=== PATIENT | female | born 1965 | race Caucasian/White ===

== ENCOUNTER 2016-12-07 21:56 | Emergency (ER) | payer SELFPAY ==
[2016-12-07 22:53] LABS: ABSOLUTE BASOPHILS # (AUTO) 0.1 10^3/uL (0.0-0.2); ABSOLUTE EOSINOPHILS # (AUTO) 0.4 10^3/uL (0.0-0.6); ABSOLUTE LYMPHOCYTES (AUTO) 5.5 10^3/uL (0.5-4.7); ABSOLUTE MONOCYTES (AUTO) 0.8 10^3/uL (0.1-1.4); ABSOLUTE NEUT (AUTO) 6.8 10^3/uL (1.7-8.2); BASOPHILS % (AUTO) 0.7 % (0-2); EOSINOPHILS % (AUTO) 2.7 % (0-6); HEMATOCRIT 44.9 % (36.0-47.0); HEMOGLOBIN 15.4 g/dL (12.0-15.5); HGB HCT DIFFERENCE 1.3; LYMPHOCYTES % (AUTO) 40.7 % (13-45); MEAN CORPUSCULAR HEMOGLOBIN 30.3 pg (27.0-33.4); MEAN CORPUSCULAR HGB CONC 34.2 g/dL (32.0-36.0); MEAN CORPUSCULAR VOLUME 89 fl (80-97); MONOCYTES % (AUTO) 6.1 % (3-13); RED BLOOD COUNT 5.06 10^6/uL (3.72-5.28); RED CELL DISTRIBUTION WIDTH 13.2 % (11.5-14.0); SEGMENTED NEUTROPHILS % (AUTO) 49.8 % (42-78); WHITE BLOOD COUNT 13.6 10^3/uL (4.0-10.5)
[2016-12-07 23:03] LABS: APPEARANCE,URINE SLIGHTLY-CLOUDY; BILIRUBIN,URINE NEGATIVE (NEGATIVE); GLUCOSE, URINE NEGATIVE (NEGATIVE); KETONES,URINE NEGATIVE (NEGATIVE); LEUKOCYTE ESTERASE,URINE NEGATIVE (NEGATIVE); NITRITE,URINE NEGATIVE (NEGATIVE); PROTEIN,URINE NEGATIVE (NEGATIVE); URINE SPECIFIC GRAVITY 1.025; UROBILINOGEN,URINE NEGATIVE mg/dL (<2.0)
[2016-12-07 23:04] LABS: ALANINE AMINOTRANSFERASE 48 U/L (9-52); ALBUMIN 4.9 g/dL (3.5-5.0); ALKALINE PHOSPHATASE 65 U/L (38-126); ANION GAP 13 (5-19); ASPARTATE AMINO TRANSFERASE 27 U/L (14-36); BILIRUBIN,DIRECT 0.3 mg/dL (0.0-0.4); BILIRUBIN,TOTAL 0.3 mg/dL (0.2-1.3); BLOOD UREA NITROGEN 18 mg/dL (7-20); CALCIUM 10.1 mg/dL (8.4-10.2); CARBON DIOXIDE 27 mmol/L (22-30); CHLORIDE 104 mmol/L (98-107); CREATININE RESULT 0.74 mg/dL (0.52-1.25); GLUCOSE 88 mg/dL (75-110); LIPASE 53.4 U/L (23-300); POTASSIUM 4.1 mmol/L (3.6-5.0); SODIUM 143.8 mmol/L (137-145); TOTAL PROTEIN 7.9 g/dL (6.3-8.2)
--- NOTE | 2016-12-08 02:17 | ER Document Report ---
ED General - General Chief Complaint: Abdominal Pain Stated Complaint: RIGHT RIB PAIN Time Seen by Provider: 12/08/16 02:08 Mode of Arrival: Ambulatory Information source: Patient TRAVEL OUTSIDE OF THE U.[place]. IN LAST 30 DAYS: No - HPI Notes: Patient is a 51-year-old white female presents to the emergency department with report of 1 month history of progressive pain through the right side of the abdomen worse to the right upper quadrant and although she also describes some pain to the right lateral lower chest wall along the rib cage as well as to the right lower quadrant region. Patient reports when the pain hits her she feels sweaty and somewhat nauseated, but she denies any specific postprandial component. patient denies any fever chills, no cough congestion. Patient has a history of previous right rib fractures and last had a CTA of the chest August 2015 which was otherwise negative. History of abdominal ultrasound 2013 which showed fatty liver. Patient does report a recent 20 pound weight gain. - Related Data Allergies/Adverse Reactions: meloxicam [Meloxicam] Allergy (Verified 12/07/16 22:27) Penicillins Allergy (Verified 12/07/16 22:27) tetracycline [Tetracycline] Allergy (Verified 12/07/16 22:27) Past Medical History - General Information source: Patient - Social History Smoking Status: Never Smoker Frequency of alcohol use: None Drug Abuse: None Lives with: Family Family History: Reviewed & Not Pertinent, CAD - mother Patient has suicidal ideation: No Patient has homicidal ideation: No - Past Medical History Cardiac Medical History: Reports: Hx Hypercholesterolemia, Hx Hypertension - borderline Denies: Hx Heart Attack Pulmonary Medical History: Reports: Hx Bronchitis Denies: Hx Asthma, Hx COPD, Hx Pneumonia Neurological Medical History: Denies: Hx Seizures Renal/ Medical History: Reports: Hx Ovarian Cysts - FIBROIDS, Hx Renal Insufficiency. Denies: Hx Peritoneal Dialysis GI Medical History: Reports: Hx Diverticulitis, Hx Gastroesophageal Reflux Disease Musculoskeltal Medical History: Reports Hx Arthritis Psychiatric Medical History: Reports: Hx Anxiety, Hx Bipolar Disorder, Hx Depression, Hx Post Traumatic Stress Disorder Past Surgical History: Reports: Hx Tubal Ligation. Denies: Hx Hysterectomy - Immunizations Hx Diphtheria, Pertussis, Tetanus Vaccination: Yes - 2012 Review of Systems - Review of Systems Notes: REVIEW OF SYSTEMS: CONSTITUTIONAL : Denies fever, chills, or sweats. Denies recent illness. EENT: Denies eye, ear, throat, or mouth pain or symptoms. Denies nasal or sinus congestion or discharge. Denies throat, tongue, or mouth swelling or difficulty swallowing. CARDIOVASCULAR: Denies chest pain. Denies palpitations or racing or irregular heart beat. Denies ankle edema. RESPIRATORY: Denies cough, cold, or chest congestion. Denies shortness of breath, difficulty breathing, or wheezing. GASTROINTESTINAL: Denies distention. Denies vomiting, or diarrhea. Denies blood in vomitus, stools, or per rectum. Denies black, tarry stools. Denies constipation. GENITOURINARY: Denies difficulty urinating, painful urination, burning, frequency, blood in urine, or discharge. FEMALE GENITOURINARY: Denies vaginal bleeding, heavy or abnormal periods, irregular periods. Denies vaginal discharge or odor. MUSCULOSKELETAL: Denies neck pain or stiffness. Denies joint pain or swelling. SKIN: Denies rash, lesions or sores. HEMATOLOGIC : Denies easy bruising or bleeding. LYMPHATIC: Denies swollen, enlarged glands. NEUROLOGICAL: Denies confusion or altered mental status. Denies passing out or loss of consciousness. Denies dizziness or lightheadedness. Denies headache. Denies weakness or paralysis or loss of use of either side. Denies problems with gait or speech. Denies sensory loss, numbness, or tingling. Denies seizures. PSYCHIATRIC: Denies anxiety or stress. Denies depression, suicidal ideation, or homicidal ideation. ALL OTHER SYSTEMS REVIEWED AND NEGATIVE. Dictation was performed using [employer] voice recognition software Physical Exam - Vital signs Vitals: Temp Pulse Resp BP Pulse Ox 98.4 F 78 20 151/94 H 97 12/07/16 22:27 12/07/16 22:27 12/07/16 22:27 12/07/16 22:27 12/07/16 22:27 - Notes Notes: PHYSICAL EXAMINATION: GENERAL: Well-appearing, well-nourished and in no acute distress. HEAD: Atraumatic, normocephalic. EYES: Pupils equal round and reactive to light, extraocular movements intact, conjunctiva are normal. ENT: Nares patent, oropharynx clear without exudates. Moist mucous membranes. NECK: Normal range of motion, supple without lymphadenopathy LUNGS: Breath sounds clear to auscultation bilaterally and equal. No wheezes rales or rhonchi. HEART: Regular rate and rhythm without murmurs ABDOMEN: Soft nondistended abdomen. No guarding, no rebound. No masses appreciated. patient is obese. There is a positive Duncan's but there is also pain to the right mid lower abdominal region. Patient also has pain to the right lateral floating anterior rib #10. No erythema or crepitance to the region. Female : deferred Musculoskeletal: Normal range of motion, no pitting or edema. No cyanosis. There is pain in the paraspinal region on the back extending around to the locations to the abdomen, raising question of herniated disc pathology given the patient's pain with possible radiculopathy. NEUROLOGICAL: Cranial nerves grossly intact. Normal speech, normal gait. Normal sensory, motor exams PSYCH: Normal mood, normal affect. SKIN: Warm, Dry, normal turgor, no rashes or lesions noted. Course - Re-evaluation Re-evalutation: 12/08/16 06:43 No evidence for pneumothorax or diverticulitis or hepatitis or pancreatitis or acute cholecystitis or aneurysm or appendicitis. Patient has a prior known history of diverticulosis. Patient does report history of herniated disks and does have a smoking history, raising question for radiculopathy accounting for the patient's pain. Patient may need follow-up MRI study. Ovarian dermoid cyst will be followed up outpatient by [employer] [employer]. - Vital Signs Vital signs: Temp Pulse Resp BP Pulse Ox 98.4 F 78 12 117/87 H 96 12/07/16 22:27 12/07/16 22:27 12/08/16 05:00 12/08/16 04:46 12/08/16 05:00 - Laboratory Result Diagrams: 12/07/16 22:40 12/07/16 22:40 Laboratory results interpreted by me: 12/07/16 22:40 WBC 13.6 H Absolute Lymphocytes 5.5 H Discharge - Discharge Clinical Impression: Dermoid cyst Abdominal pain Qualifiers: Abdominal location: right upper quadrant Qualified Code(s): R10.11 - Right upper quadrant pain Back pain Qualifiers: Back pain location: low back pain Chronicity: unspecified Back pain laterality : right Sciatica presence: without sciatica Qualified Code(s): M54.5 - Low back pain Condition: Stable Disposition: HOME, SELF-CARE Instructions: Abdominal Pain ([facility]), Low Back Pain ([facility]) Additional Instructions: If back pain continues, then you may need a MRI of the thoracic and lumbar spine. Follow-up with a bird cage assembler regarding the dermoid cyst on the right ovary. Prescriptions: Hydrocodone/Acetaminophen [[place] 5-325 mg Tablet] 1 tab PO Q4HP PRN #20 tablet PRN Reason: Cyclobenzaprine HCl [Flexeril 10 mg Tablet] 10 mg PO TIDP PRN #20 tablet PRN Reason: Forms: Return to Work
[2016-12-08] MEDS ORDERED: NORMAL SALINE 1000 ML 1,000 ML IV ONE (02:33)
--- NOTE | 2016-12-08 03:36 | RADIOLOGY REPORT (SQ) ---
EXAM DESCRIPTION: CT ABD/PELVIS WITH IV ONLY COMPLETED DATE/TIME: 12/08/2016 3:10 am REASON FOR STUDY: R abd pain COMPARISON: None. TECHNIQUE: CT scan of the abdomen and pelvis performed using helical scanning technique with dynamic intravenous contrast injection. No oral contrast. Images reviewed with lung, soft tissue, and bone windows. Reconstructed coronal and sagittal MPR images reviewed. Delayed images for evaluation of the urinary system also acquired. All images stored on PACS. All CT scanners at this facility use dose modulation, iterative reconstruction, and/or weight based d osing when appropriate to reduce radiation dose to as low as reasonably achievable (ALARA). [facility]: Dose Right [facility]: CareDose [facility]: Dose Right [facility]: Teradose 4D [facility]: Quant the News CONTRAST TYPE AND DOSE: 100mL Isovue 370- low osmolar. RENAL FUNCTION: Creatinine 0.7 RADIATION DOSE: 37.95mGy. LIMITATIONS: None. FINDINGS: LOWER CHEST: No significant findings. No nodules or infiltrates. Minimal hiatal hernia. LIVER: Normal size. No masses or dilated ducts. SPLEEN: Normal size. No focal lesions. PANCREAS: No masses. No significant calcifications. No adjacent inflammation or peripancreatic fluid collections. Pancreatic duct not dilated. GALLBLADDER: No identified stones by CT criteria. No inflammatory changes to suggest cholecystitis. ADRENAL GLANDS: No significant masses or asymmetry. RIGHT KIDNEY AND URETER: No solid masses. No significant calcifications. No hydronephrosis or hyd roureter. LEFT KIDNEY AND URETER: No solid masses. No significant calcifications. No hydronephrosis or hydr oureter. 1.2 cm exophytic likely benign cyst of the left kidney, inferior pole. AORTA AND VESSELS: No aneurysm. No dissection. Renal arteries, SMA, celiac without stenosis. RETROPERITONEUM: No retroperitoneal adenopathy, hemorrhage or masses. BOWEL AND PERITONEAL CAVITY: No masses or inflammatory changes. No free fluid or peritoneal masses. Small colonic diverticulosis. APPENDIX: Normal. PELVIS: No mass or free fluid. Normal bladder. Likely 2.1 right ovarian dermoid. ABDOMINAL WALL: No masses. No hernias. BONES: No significant or acute findings. Mild developmental L1 anterior vertebral wedging. Mild dis c desiccation at the thoracolumbar junction. OTHER: No other significant finding. IMPRESSION: No acute findings. 2.1 cm right ovarian dermoid. TECHNICAL DOCUMENTATION: JOB ID: [id number] Quality ID # [id number]: Final reports with documentation of one or more dose reduction techniques (e.g., Au tomated exposure control, adjustment of the mA and/or kV according to patient size, use of iterative reconstruction technique) 2010 [employer]- All Rights Reserved
[2016-12-08] MEDS ORDERED: HYDROCODONE/ACETAMINOPHEN 5-325 MG TABLET PO ONE (05:39)
[2016-12-08] MEDS ORDERED: CYCLOBENZAPRINE HCL 10 MG TABLET PO ONE (05:39)
[2016-12-08 05:54] VITALS: BP 117/87
== END 2016-12-08 07:12 | disposition home or self-care (01) ==
LOC: ER 21:56
DX: D27.0 Benign neoplasm of right ovary (principal); R10.11 Right upper quadrant pain; R10.31 Right lower quadrant pain; R07.89 Other chest pain; R61 Generalized hyperhidrosis; M54.5 Low back pain; R11.0 Nausea; Z87.81 Personal history of (healed) traumatic fracture; R63.5 Abnormal weight gain; Z68.38 Body mass index [BMI] 38.0-38.9, adult; Z88.8 Allergy status to other drugs, medicaments and biological substances; Z88.0 Allergy status to penicillin; Z88.1 Allergy status to other antibiotic agents; Z98.51 Tubal ligation status
CPT/HCPCS: 99284; 36415; 83690; 85025; 81025; 80053; 81001; 74177; J7030; 96360

== ENCOUNTER 2017-02-09 12:53 | Emergency (ER) | payer SELFPAY ==
[2017-02-09 13:13] VITALS: BP 159/91
--- NOTE | 2017-02-09 13:26 | ER Document Report ---
HPI - HPI Patient complains to provider of: Body aches and sore throat Onset: Other - 1 week Onset/Duration: Persistent Quality of pain: Achy Pain Level: 5 Context: 51-year-old female complaining of generalized body aches, sore throat, dental pain, anterior left base of the neck pain. She also states that her right eye was crusted shut this morning. No fever. No chest pain or shortness of breath. No nausea vomiting or diarrhea. No abdominal pain. No rash. Associated Symptoms: Other - See above Exacerbated by: Denies Relieved by: Denies Similar symptoms previously: No Recently seen / treated by doctor: No - ROS ROS below otherwise negative: Yes Systems Reviewed and Negative: Yes All other systems reviewed and negative - REPRODUCTIVE Reproductive: DENIES: : - DERM Skin Color: Normal Past Medical History - General Information source: Patient - Social History Smoking Status: Current Every Day Smoker Frequency of alcohol use: None Drug Abuse: None Lives with: Family Family History: Reviewed & Not Pertinent, CAD - mother Patient has suicidal ideation: No Patient has homicidal ideation: No - Past Medical History Cardiac Medical History: Reports: Hx Hypercholesterolemia, Hx Hypertension - borderline Pulmonary Medical History: Reports: Hx Bronchitis Renal/ Medical History: Reports: Hx Ovarian Cysts - FIBROIDS, Hx Renal Insufficiency. Denies: Hx Peritoneal Dialysis GI Medical History: Reports: Hx Diverticulitis, Hx Gastroesophageal Reflux Disease Musculoskeltal Medical History: Reports Hx Arthritis Psychiatric Medical History: Reports: Hx Anxiety, Hx Bipolar Disorder, Hx Depression, Hx Post Traumatic Stress Disorder Surgical Hx: Negative Past Surgical History: Reports: Hx Tubal Ligation - Immunizations Hx Diphtheria, Pertussis, Tetanus Vaccination: Yes - 2012 [facility] Provider Document - CONSTITUTIONAL Agree With Documented VS: Yes Exam Limitations: No Limitations General Appearance: No Apparent Distress - INFECTION CONTROL TRAVEL OUTSIDE OF THE [place] IN LAST 30 DAYS: No COUNTRY TRAVELED TO/FROM: [place] - HEENT HEENT: Normocephalic, PERRLA, Pharyngeal Erythema - Mild. negative: Conjuctival Injection, Tympanic Membrane Red Notes: Top right molar decay no abscess. Right preauricular lymph node. No conjunctival injection, no fluorescein uptake. - NECK Neck: Supple. negative: Lymphadenopathy-Left, Lymphadenopathy-Right Notes: Tender left scalene muscle base of the neck just above the clavicle, no adenopathy - RESPIRATORY Respiratory: Breath Sounds Normal, No Respiratory Distress O2 Sat by Pulse Oximetry: 97 - CARDIOVASCULAR Cardiovascular: Regular Rate, Regular Rhythm - GI/ABDOMEN Gastrointestinal: Abdomen Soft, Abdomen Non-Tender - BACK Back: Normal Inspection. negative: CVA Tenderness-Right, CVA Tenderness-Left - MUSCULOSKELETAL/EXTREMETIES Musculoskeletal/Extremeties: MAEW, FROM - NEURO Level of Consciousness: Awake, Alert, Appropriate - DERM Integumentary: Warm, Dry, No Rash Course - Vital Signs Vital signs: Temp Pulse Resp BP Pulse Ox 98.0 F 77 18 159/91 H 97 02/09/17 13:11 02/09/17 13:11 02/09/17 13:11 02/09/17 13:11 02/09/17 13:11 Discharge - Discharge Clinical Impression: right conjunctivitis, upper respiratroy infeciton, Lymphadenopathy, skalene muscle strain, Pain, dental Condition: Good Disposition: HOME, SELF-CARE Instructions: Conjunctivitis ([facility]), Upper Respiratory Illness ([facility]), Toothache ([facility]), Lymphadenopathy ([facility]), Muscle Strain ([facility]), Warm Packs ([facility]), Dentist Additional Instructions: See your doctor for follow-up see the dentist warm compress to muscle To the emergency room if worse Please complete the patient satisfaction survey if you get one, and return it.. If you do not receive a survey, then you can go to the [facility] website, [email or web address] and place your comments about your very good care. Thank you very much. It was a pleasure being your medical provider today. Prescriptions: Hydrocodone Bit/Acetaminophen [Hydrocodon-Acetaminophen 5-325] 1 each PO Q4HP PRN #15 tablet PRN Reason: Clindamycin HCl [Cleocin 150 mg Capsule] 300 mg PO TID #42 capsule Sulfacetamide Sodium [Bleph-10] 2 drop OU QID #5 ml Forms: Return to Work Referrals: ADALBERTO PATEL MD [Primary Care Provider] - Follow up as needed
== END 2017-02-09 14:16 | disposition home or self-care (01) ==
LOC: ER 12:53
DX: S16.1XXA Strain of muscle, fascia and tendon at neck level, initial encounter (principal); H10.9 Unspecified conjunctivitis; J06.9 Acute upper respiratory infection, unspecified; K08.89 Other specified disorders of teeth and supporting structures; R59.1 Generalized enlarged lymph nodes; R52 Pain, unspecified; J02.9 Acute pharyngitis, unspecified; M54.2 Cervicalgia; F17.200 Nicotine dependence, unspecified, uncomplicated; X58.XXXA Exposure to other specified factors, initial encounter
CPT/HCPCS: 99283

== ENCOUNTER 2017-08-23 13:17 | Emergency (ER) | payer SELFPAY ==
--- NOTE | 2017-08-23 14:33 | ER Document Report ---
HPI - HPI Patient complains to provider of: Dental pain Onset: This morning Onset/Duration: Gradual Quality of pain: Achy Pain Level: 4 Context: Patient complains of dental pain to right upper jaw. Patient states she noticed some swelling to her face today. Patient denies any fever. Associated Symptoms: Other - Dental pain. denies: Fever Exacerbated by: Denies Relieved by: Denies Similar symptoms previously: Yes Recently seen / treated by doctor: No - ROS ROS below otherwise negative: Yes Systems Reviewed and Negative: Yes All other systems reviewed and negative - CONSTITUTIONAL Constitutional: DENIES: Fever, Chills - EENT Notes: Dental pain - RESPIRATORY Respiratory: DENIES: Coughing - GASTROINTESTINAL Gastrointestinal: DENIES: Nausea, Patient vomiting - REPRODUCTIVE Reproductive: DENIES: : - DERM Skin Color: Normal Skin Problems: None Past Medical History - General Information source: Patient - Social History Smoking Status: Current Every Day Smoker Smoking Education Provided: Yes Frequency of alcohol use: Occasional Drug Abuse: None Occupation: call center Lives with: Family Family History: Reviewed & Not Pertinent, CAD - mother Patient has suicidal ideation: No Patient has homicidal ideation: No - Past Medical History Cardiac Medical History: Reports: Hx Hypercholesterolemia, Hx Hypertension - borderline Denies: Hx Heart Attack Pulmonary Medical History: Reports: Hx Bronchitis Denies: Hx Asthma, Hx COPD, Hx Pneumonia Neurological Medical History: Denies: Hx Seizures Renal/ Medical History: Reports: Hx Ovarian Cysts - FIBROIDS, Hx Renal Insufficiency. Denies: Hx Peritoneal Dialysis GI Medical History: Reports: Hx Diverticulitis, Hx Gastroesophageal Reflux Disease Musculoskeltal Medical History: Reports Hx Arthritis Psychiatric Medical History: Reports: Hx Anxiety, Hx Bipolar Disorder, Hx Depression, Hx Post Traumatic Stress Disorder Past Surgical History: Reports: Hx Tubal Ligation. Denies: Hx Hysterectomy - Immunizations Hx Diphtheria, Pertussis, Tetanus Vaccination: Yes - 2013 [employer] Provider Document - CONSTITUTIONAL Agree With Documented VS: Yes Exam Limitations: No Limitations General Appearance: WD/WN, No Apparent Distress - INFECTION CONTROL TRAVEL OUTSIDE OF THE [place] IN LAST 30 DAYS: No COUNTRY TRAVELED TO/FROM: [place] - HEENT HEENT: Atraumatic, Normocephalic. negative: Pharyngeal Exudate, Pharyngeal Tenderness, Pharyngeal Erythema, Tympanic Membrane Red, Tympanic Membrane Bulging Mouth Diagram: 1 - tenderness, dental decay - NECK Neck: Normal Inspection, Supple. negative: Lymphadenopathy-Left, Lymphadenopathy-Right - RESPIRATORY Respiratory: Breath Sounds Normal, No Respiratory Distress O2 Sat by Pulse Oximetry: 95 - CARDIOVASCULAR Cardiovascular: Regular Rate, Regular Rhythm, No Murmur - BACK Back: Normal Inspection - MUSCULOSKELETAL/EXTREMETIES Musculoskeletal/Extremeties: ZULEIKA RIOS - NEURO Level of Consciousness: Awake, Alert, Appropriate Motor/Sensory: No Motor Deficit - DERM Integumentary: Warm, Dry, No Rash Course - Re-evaluation Re-evalutation: 08/23/17 14:30 The patient has been informed that they may have pre-hypertension or hypertension based on a blood pressure reading in the emergency department. I recommend that patient call the primary care provider listed on their discharge instructions or a physician of their choice by this week to arrange follow-up for further evaluation of possible pre-hypertension or hypertension. Controlled substance database reviewed - Vital Signs Vital signs: Temp Pulse Resp BP Pulse Ox 98.6 F 78 16 147/91 H 95 08/23/17 13:28 08/23/17 13:28 08/23/17 13:28 08/23/17 13:28 08/23/17 13:28 Discharge - Discharge Clinical Impression: Pain due to dental caries, Elevated blood pressure reading Condition: Stable Disposition: HOME, SELF-CARE Instructions: Clindamycin ([facility]), Toothache ([facility]), Ultram ([facility]) Additional Instructions: Return immediately for any new or worsening symptoms Followup with your primary care provider, call tomorrow to make a followup appointment Follow-up with a dental care provider Prescriptions: Clindamycin HCl [Cleocin 300 mg Capsule] 300 mg PO TID #21 capsule Tramadol HCl [Ultram 50 mg Tablet] 50 mg PO ASDIR PRN #15 tablet PRN Reason: Forms: Elevated Blood Pressure, Smoking Cessation Education, Return to Work Referrals: ADALBERTO PATEL MD [ACTIVE STAFF] - Follow up as needed [facility] [Provider Group] - Follow up tomorrow
[2017-08-23 14:56] VITALS: BP 132/85
== END 2017-08-23 14:56 | disposition home or self-care (01) ==
LOC: ER 13:17
DX: K02.9 Dental caries, unspecified (principal); R03.0 Elevated blood-pressure reading, without diagnosis of hypertension; F17.200 Nicotine dependence, unspecified, uncomplicated; E78.00 Pure hypercholesterolemia, unspecified; Z98.51 Tubal ligation status
CPT/HCPCS: 99282

== ENCOUNTER 2017-09-27 16:49 | Emergency (ER) | payer BC ==
--- NOTE | 2017-09-27 17:38 | RADIOLOGY REPORT (SQ) ---
EXAM DESCRIPTION: CHEST PA/LAT COMPLETED DATE/TIME: 09/27/2017 5:27 pm REASON FOR STUDY: cp COMPARISON: 08/21/2015 EXAM PARAMETERS: NUMBER OF VIEWS: two views TECHNIQUE: Digital Frontal and Lateral radiographic views of the chest acquired. RADIATION DOSE: NA LIMITATIONS: none FINDINGS: LUNGS AND PLEURA: No opacities, masses or pneumothorax. No pleural effusion. MEDIASTINUM AND HILAR STRUCTURES: No masses or contour abnormalities. HEART AND VASCULAR STRUCTURES: Heart normal size. No evidence for failure. BONES: No acute findings. HARDWARE: None in the chest. OTHER: No other significant finding. IMPRESSION: NO SIGNIFICANT RADIOGRAPHIC FINDING IN THE CHEST. TECHNICAL DOCUMENTATION: JOB ID: [id number] [employer]- All Rights Reserved Reading location - IP/workstation name: [email or web address]
[2017-09-27] MEDS ORDERED: ONDANSETRON HCL INJ/PF 4 MG/2 ML SDV IV ONE (18:36)
--- NOTE | 2017-09-27 18:36 | ER Document Report ---
ED General - General Chief Complaint: Chest Pain > 30 Stated Complaint: CHEST PAIN Time Seen by Provider: 09/27/17 18:25 TRAVEL OUTSIDE OF THE [place] IN LAST 30 DAYS: No COUNTRY TRAVELED TO/FROM: [facility] Notes: Patient is a 52-year-old female with a history of hypercholesterolemia, CVA approximately 4 years ago, occasional falls and CVA who presents to the ED complaining of midsternal chest tightness, dizziness, headache, and nausea 3 days. + loose stool x3-4 days. Patient states that she does have shortness of breath when she ambulates. The chest pain does not radiate otherwise. Patient states that she is still eating and drinking without any difficulties. She is urinating normally for her and having normal bowel movements. Patient states that she did fall on an outstretched hand today and has a bruise to her anterior wrist. Patient denies any head injury or loss of consciousness. Patient does not take any p.o. medications daily. She denies any significant cardiac history. Denies any prolonged immobilization, hormone replacement, diabetes, previous DVT/PE, cancer, recent surgery/trauma, or IV drug use. Patient does admit to smoking. Denies any fever, neck pain, changes in vision/ speech/mentation/hearing, URI, sore throat, palpitations, syncope, cough, shortness of breath, wheeze, dyspnea, abdominal pain, vomiting, urinary retention, dysuria, hematuria, or rash. I have treated and performed a rapid initial assessment of this patient. A comprehensive ED assessment and evaluation of the patient, analysis of test results and completion of medical decision making process will be conducted by additional ED providers. PHYSICAL EXAMINATION: GENERAL: Well-appearing, well-nourished and in no acute distress. A&Ox4. Answers questions appropriately. LUNGS: Breath sounds clear to auscultation bilaterally and equal. No wheezes rales or rhonchi. HEART: Regular rate and rhythm without murmurs, rubs, gallops. ABDOMEN: Soft, bs present. Extremities: No cyanosis, clubbing, or edema b/l. NEUROLOGICAL: Normal speech, normal gait. PSYCH: Normal mood, normal affect. - Related Data Allergies/Adverse Reactions: meloxicam [Meloxicam] Allergy (Verified 09/27/17 16:52) Penicillins Allergy (Verified 09/27/17 16:52) tetracycline [Tetracycline] Allergy (Verified 09/27/17 16:52) Past Medical History - Social History Smoking Status: Current Every Day Smoker Chew tobacco use (# tins/day): No Frequency of alcohol use: None Drug Abuse: None Family History: Reviewed & Not Pertinent, CAD - mother Patient has suicidal ideation: No Patient has homicidal ideation: No - Past Medical History Cardiac Medical History: Reports: Hx Hypercholesterolemia, Hx Hypertension - borderline Denies: Hx Heart Attack Pulmonary Medical History: Reports: Hx Bronchitis Denies: Hx Asthma, Hx COPD, Hx Pneumonia Neurological Medical History: Denies: Hx Seizures Renal/ Medical History: Reports: Hx Ovarian Cysts - FIBROIDS, Hx Renal Insufficiency. Denies: Hx Peritoneal Dialysis GI Medical History: Reports: Hx Diverticulitis, Hx Gastroesophageal Reflux Disease Musculoskeltal Medical History: Reports Hx Arthritis Psychiatric Medical History: Reports: Hx Anxiety, Hx Bipolar Disorder, Hx Depression, Hx Post Traumatic Stress Disorder Past Surgical History: Reports: Hx Tubal Ligation. Denies: Hx Hysterectomy - Immunizations Hx Diphtheria, Pertussis, Tetanus Vaccination: Yes - 2012 Physical Exam - Vital signs Vitals: Temp Pulse Resp BP Pulse Ox 98.3 F 95 18 148/88 H 96 09/27/17 17:01 09/27/17 17:01 09/27/17 17:01 09/27/17 17:01 09/27/17 17:01 Course - Vital Signs Vital signs: Temp Pulse Resp BP Pulse Ox 98.3 F 95 18 148/88 H 96 09/27/17 17:01 09/27/17 17:01 09/27/17 17:01 09/27/17 17:01 09/27/17 17:01
--- NOTE | 2017-09-27 18:53 | EKG REPORT ---
SEVERITY:- BORDERLINE ECG - SINUS RHYTHM PROBABLE LEFT ATRIAL ABNORMALITY : Confirmed by: Willie Vela MD 27-Sep-2017 18:53:00
--- NOTE | 2017-09-27 19:19 | RADIOLOGY REPORT (SQ) ---
EXAM DESCRIPTION: WRIST RIGHT 3 VIEWS COMPLETED DATE/TIME: 09/27/2017 7:10 pm REASON FOR STUDY: rt anterior wrist pain s/p fall COMPARISON: 01/30/2015 NUMBER OF VIEWS: Three views. TECHNIQUE: AP, lateral, and oblique radiographic images acquired of the right wrist. LIMITATIONS: None. FINDINGS: MINERALIZATION: Normal. BONES: No acute fracture or dislocation. No worrisome bone lesions. Normal alignment. SOFT TISSUES: No soft tissue swelling. No foreign body. OTHER: No other significant finding. IMPRESSION: NEGATIVE STUDY OF THE RIGHT WRIST. NO RADIOGRAPHIC EVIDENCE OF ACUTE INJURY. TECHNICAL DOCUMENTATION: JOB ID: [id number] [employer]- All Rights Reserved Reading location - IP/workstation name: [email or web address]
[2017-09-27 19:44] LABS: ABSOLUTE BASOPHILS # (AUTO) 0.1 10^3/uL (0.0-0.2); ABSOLUTE EOSINOPHILS # (AUTO) 0.2 10^3/uL (0.0-0.6); ABSOLUTE LYMPHOCYTES (AUTO) 4.1 10^3/uL (0.5-4.7); ABSOLUTE NEUT (AUTO) 9.4 10^3/uL (1.7-8.2); BASOPHILS % (AUTO) 0.4 % (0-2); EOSINOPHILS % (AUTO) 1.3 % (0-6); HEMATOCRIT 44.1 % (36.0-47.0); HEMOGLOBIN 14.9 g/dL (12.0-15.5); MEAN CORPUSCULAR HEMOGLOBIN 30.8 pg (27.0-33.4); MEAN CORPUSCULAR HGB CONC 33.8 g/dL (32.0-36.0); MEAN CORPUSCULAR VOLUME 91 fl (80-97); MONOCYTES % (AUTO) 7.1 % (3-13); PLATELET COUNT 338 10^3/uL (150-450); RED BLOOD COUNT 4.83 10^6/uL (3.72-5.28); RED CELL DISTRIBUTION WIDTH 13.2 % (11.5-14.0); SEGMENTED NEUTROPHILS % (AUTO) 63.2 % (42-78); TOTAL CELLS COUNTED % (AUTO) 100 %; WHITE BLOOD COUNT 14.8 10^3/uL (4.0-10.5)
[2017-09-27 19:50] LABS: INTERNATIONAL RATION (INR) 0.81; PROTHROMBIN TIME 11.8 SEC (11.4-15.4)
[2017-09-27 20:11] LABS: ALANINE AMINOTRANSFERASE 51 U/L (9-52); ALBUMIN 4.8 g/dL (3.5-5.0); ALKALINE PHOSPHATASE 61 U/L (38-126); ANION GAP 13 (5-19); ASPARTATE AMINO TRANSFERASE 26 U/L (14-36); BILIRUBIN,DIRECT 0.3 mg/dL (0.0-0.4); BILIRUBIN,TOTAL 0.3 mg/dL (0.2-1.3); BLOOD UREA NITROGEN 20 mg/dL (7-20); CALCIUM 10.3 mg/dL (8.4-10.2); CARBON DIOXIDE 22 mmol/L (22-30); CHLORIDE 107 mmol/L (98-107); CREATINE KINASE 87 U/L (30-135); GLUCOSE 90 mg/dL (75-110); POTASSIUM 4.4 mmol/L (3.6-5.0); SODIUM 141.6 mmol/L (137-145); TOTAL PROTEIN 7.5 g/dL (6.3-8.2)
[2017-09-27 20:23] LABS: CREATINE KINASE MB 1.05 ng/mL (<4.55)
[2017-09-27 20:24] LABS: TROPONIN I < 0.012 ng/mL
--- NOTE | 2017-09-27 20:52 | ER Document Report ---
ED General - General Chief Complaint: Chest Pain > 30 Stated Complaint: CHEST PAIN Time Seen by Provider: 09/27/17 18:25 Notes: Patient is at the 52-year-old female comes emergency department for several complaints. She states she has been having headaches for the past week with a sense of imbalance and lightheadedness when she stands up, she states that she feels like she is leaning to the left frequently, she fell earlier today and injured her right wrist, she denies head injury. She denies focal numbness or weakness. She also states that for the past 3 days or so she has been getting intermittent chest discomfort, intermittent nausea, occasionally feels short of breath. She denies vomiting, fever, current shortness of breath. Her only current complaint is a headache. Past medical history of CVA with no reported deficits, hyperlipidemia, hypertension, smoker. She has had negative stress test in the past. TRAVEL OUTSIDE OF THE [place] IN LAST 30 DAYS: No COUNTRY TRAVELED TO/FROM: [place] - Related Data Allergies/Adverse Reactions: meloxicam [Meloxicam] Allergy (Verified 09/27/17 16:52) Penicillins Allergy (Verified 09/27/17 16:52) tetracycline [Tetracycline] Allergy (Verified 09/27/17 16:52) Past Medical History - General Information source: Patient - Social History Smoking Status: Current Every Day Smoker Chew tobacco use (# tins/day): No Smoking Education Provided: Yes - <3 min Frequency of alcohol use: None Drug Abuse: None Lives with: Family Family History: Reviewed & Not Pertinent, CAD - mother Patient has suicidal ideation: No Patient has homicidal ideation: No - Past Medical History Cardiac Medical History: Reports: Hx Hypercholesterolemia, Hx Hypertension - borderline Denies: Hx Heart Attack Pulmonary Medical History: Reports: Hx Bronchitis Denies: Hx Asthma, Hx COPD, Hx Pneumonia Neurological Medical History: Denies: Hx Seizures Renal/ Medical History: Reports: Hx Ovarian Cysts - FIBROIDS, Hx Renal Insufficiency. Denies: Hx Peritoneal Dialysis GI Medical History: Reports: Hx Diverticulitis, Hx Gastroesophageal Reflux Disease Musculoskeltal Medical History: Reports Hx Arthritis Psychiatric Medical History: Reports: Hx Anxiety, Hx Bipolar Disorder, Hx Depression, Hx Post Traumatic Stress Disorder Past Surgical History: Reports: Hx Tubal Ligation. Denies: Hx Hysterectomy - Immunizations Hx Diphtheria, Pertussis, Tetanus Vaccination: Yes - 2012 Review of Systems - Review of Systems Constitutional: No symptoms reported EENT: See HPI Cardiovascular: See HPI Respiratory: See HPI Gastrointestinal: No symptoms reported Genitourinary: No symptoms reported Female Genitourinary: No symptoms reported Musculoskeletal: See HPI Skin: No symptoms reported Hematologic/Lymphatic: No symptoms reported Neurological/Psychological: See HPI Physical Exam - Vital signs Vitals: Temp Pulse Resp BP Pulse Ox 98.3 F 95 18 148/88 H 96 09/27/17 17:01 09/27/17 17:01 09/27/17 17:01 09/27/17 17:01 09/27/17 17:01 - General General appearance: Appears well In distress: None - HEENT Head: Normocephalic, Atraumatic Eyes: Normal Conjunctiva: Normal Extraocular movements intact: Yes Eyelashes: Normal Pupils: PERRL Nasal: Normal Mouth/Lips: Normal Mucous membranes: Normal Pharynx: Normal Neck: Normal - Respiratory Respiratory status: No respiratory distress Chest status: Nontender Breath sounds: Normal. No: Decreased air movement, Wheezing - Cardiovascular Rhythm: Regular. No: Tachycardia Heart sounds: Normal auscultation, S1 appreciated, S2 appreciated Murmur: No Normal capillary refill: Yes - Abdominal Inspection: Normal Tenderness: Nontender. No: Tender, Guarding - Back Back: Tender - Tender in the right paracervical area and in the lumbar area bilaterally. No midline tenderness, saddle anesthesia, or signs of trauma. Normal upper and lower extremity range of motion, strength, distal neurovascular exam - Extremities General upper extremity: Normal inspection, Nontender, Normal strength, Normal temperature. No: Tender General lower extremity: Normal inspection, Nontender, Normal strength, Normal temperature. 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 Chest x-ray and x-ray of the wrist are both unremarkable. Patient has mild tenderness in the wrist, she can support her weight with it, no swelling, snuffbox tenderness, or concerning a normality with it. CBC, chemistry, troponin are all unremarkable. Patient able to stand up and ambulate without any falling to the left, does not complain of dizziness or lightheadedness while walking, is smiling, alert, and well-appearing. No neurological deficits whatsoever. CAT scan of the head is negative. Patient does have pain over her back which is chronic, this is worse in the right paracervical musculature, she was medicated for headache because she is complaining of one, most likely a tension headache. 2 sets of negative troponins. Vague described pain for 3 days. Heart score of 3. On reevaluation patient is talking loudly on her cell phone. She is asking to go home. I did discuss potential telemetry observation due to chest pain, patient declines, she states she will follow up outpatient with her provider first, cardiac follow-up will be placed as well, patient will be treated for painful muscles triggering headaches, discussed workup, recommendations, return precautions in detail. Patient states understanding and agreement. - Vital Signs Vital signs: Temp Pulse Resp BP Pulse Ox 98.3 F 95 19 116/66 95 09/27/17 17:01 09/27/17 17:01 09/28/17 00:31 09/28/17 00:31 09/28/17 00:31 - Laboratory Result Diagrams: 09/27/17 19:30 09/27/17 19:30 Laboratory results interpreted by me: 09/27/17 09/27/17 09/27/17 19:30 19:30 21:57 WBC 14.8 H Absolute Neutrophils 9.4 H Calcium 10.3 H Urine Blood SMALL H Discharge - Discharge Clinical Impression: Muscle pain Headache Qualifiers: Headache type: unspecified Headache chronicity pattern: acute headache Intractability: not intractable Qualified Code(s): R51 - Headache Chest pain Qualifiers: Chest pain type: unspecified Qualified Code(s): R07.9 - Chest pain, unspecified Condition: Stable Disposition: HOME, SELF-CARE Additional Instructions: The CAT scan of your head is negative, your neurological exam does not show any concerning abnormalities. Based on your examination I suspect you are having neck and back pain causing associated symptoms including tension headaches. Your workup to this time does not show any concerning a normality's, however please follow-up with your primary care provider within the next 2 days, follow- up with cardiology referral, return if you worsen including returned or worsening pain in your chest or head, vomiting, fever, or any other concerning symptoms. Prescriptions: Diazepam [Valium 5 mg Tablet] 1 - 2 tab PO TID PRN #15 tablet PRN Reason: Forms: Return to Work Referrals: KATE ROSALES MD [ACTIVE STAFF] - 09/30/17
--- NOTE | 2017-09-27 21:38 | RADIOLOGY REPORT (SQ) ---
EXAM DESCRIPTION: CT HEAD WITHOUT COMPLETED DATE/TIME: 09/27/2017 9:19 pm REASON FOR STUDY: headache, imbalance, dizziness COMPARISON: 01/03/2015 TECHNIQUE: Axial images acquired through the brain without intravenous contrast. Images reviewed wi th bone, brain and subdural windows. Images stored on PACS. All CT scanners at this facility use dose modulation, iterative reconstruction, and/or weight based d osing when appropriate to reduce radiation dose to as low as reasonably achievable (ALARA). [facility]: Dose Right [facility]: CareDose [facility]: Dose Right [facility]: Teradose 4D [facility]: Smart 01/03/2015 Techn [employer]logies RADIATION DOSE: CT Rad equipment meets quality standard of care and radiation dose reduction techniq ues were employed. CTDIvol: 64.6 mGy. DLP: 1163 mGy-cm. mGy. LIMITATIONS: None. FINDINGS: VENTRICLES: Normal size and contour. CEREBRUM: No masses. No hemorrhage. No midline shift. No evidence for acute infarction. Normal gra y/white matter differentiation. No areas of low density in the white matter. CEREBELLUM: No masses. No hemorrhage. No alteration of density. No evidence for acute infarction. EXTRAAXIAL SPACES: No fluid collections. No masses. ORBITS AND GLOBE: No intra- or extraconal masses. Normal contour of globe without masses. CALVARIUM: No fracture. PARANASAL SINUSES: No fluid or mucosal thickening. SOFT TISSUES: No mass or hematoma. OTHER: No other significant finding. IMPRESSION: NORMAL BRAIN CT WITHOUT CONTRAST. EVIDENCE OF ACUTE STROKE: NO. COMMENT: Quality ID # [id number]: Final reports with documentation of one or more dose reduction techniques (e.g., Automated exposure control, adjustment of the mA and/or kV according to patient size, use of iterative reconstruction technique) TECHNICAL DOCUMENTATION: JOB ID: [id number] [employer]- All Rights Reserved Reading location - IP/workstation name: [email or web address]
[2017-09-27] MEDS ORDERED: DIPHENHYDRAMINE HCL 50 MG/ML VIAL IV ONE (21:57)
[2017-09-27] MEDS ORDERED: METOCLOPRAMIDE HCL INJ/PF 10 MG/2 ML SDV IV ONE (21:57)
[2017-09-27] MEDS ORDERED: OXYCODONE-ACETAMINOPHEN 5-325 MG TABLET PO ONE (22:03)
[2017-09-27 22:52] LABS: APPEARANCE,URINE SLIGHTLY-CLOUDY; BILIRUBIN,URINE NEGATIVE (NEGATIVE); COLOR,URINE YELLOW; GLUCOSE, URINE NEGATIVE (NEGATIVE); KETONES,URINE NEGATIVE (NEGATIVE); LEUKOCYTE ESTERASE,URINE NEGATIVE (NEGATIVE); NITRITE,URINE NEGATIVE (NEGATIVE); PROTEIN,URINE NEGATIVE (NEGATIVE); URINE SPECIFIC GRAVITY 1.019; UROBILINOGEN,URINE NEGATIVE mg/dL (<2.0)
[2017-09-28 00:39] VITALS: BP 116/66
== END 2017-09-28 00:40 | disposition home or self-care (01) ==
LOC: ER 16:49
DX: R07.9 Chest pain, unspecified (principal); R51 Headache; M79.1 Myalgia; R42 Dizziness and giddiness; S69.91XA Unspecified injury of right wrist, hand and finger(s), initial encounter; F17.200 Nicotine dependence, unspecified, uncomplicated; W19.XXXA Unspecified fall, initial encounter
CPT/HCPCS: 93005; 99285; 96374; 96375; 36415; 82553; 82550; 85025; 85610; 80053; 81001; 84484; 71046; 73110; 70450; 93010; J1200; J2765; J2405

== ENCOUNTER 2017-10-20 11:27 | Emergency (ER) | payer BC ==
[2017-10-20 11:58] VITALS: BP 164/98
--- NOTE | 2017-10-20 13:35 | ER Document Report ---
ED General - General Chief Complaint: Breathing Difficulty Stated Complaint: DIFFICULTY BREATHING, COLD SYMPTOMS Time Seen by Provider: 10/20/17 13:11 Notes: 52-year-old female here with complaints of cough and shortness of breath ongoing since yesterday morning. Cough is productive of yellow sputum. She has felt like she has had some fevers but unmeasured. No prior history of pneumonia. She does smoke 1 pack of cigarettes every 2 days. TRAVEL OUTSIDE OF THE [place] IN LAST 30 DAYS: No COUNTRY TRAVELED TO/FROM: [place] - Related Data Allergies/Adverse Reactions: meloxicam [Meloxicam] Allergy (Verified 10/20/17 13:01) Penicillins Allergy (Verified 10/20/17 13:01) tetracycline [Tetracycline] Allergy (Verified 10/20/17 13:01) Past Medical History - Social History Smoking Status: Current Every Day Smoker Chew tobacco use (# tins/day): No Frequency of alcohol use: None Drug Abuse: None Family History: Reviewed & Not Pertinent, CAD - mother Patient has suicidal ideation: No Patient has homicidal ideation: No - Past Medical History Cardiac Medical History: Reports: Hx Hypercholesterolemia, Hx Hypertension - borderline, no meds Denies: Hx Heart Attack Pulmonary Medical History: Reports: Hx Bronchitis Denies: Hx Asthma, Hx COPD, Hx Pneumonia Neurological Medical History: Denies: Hx Seizures Renal/ Medical History: Reports: Hx Ovarian Cysts - FIBROIDS, Hx Renal Insufficiency. Denies: Hx Peritoneal Dialysis GI Medical History: Reports: Hx Diverticulitis, Hx Gastroesophageal Reflux Disease Musculoskeltal Medical History: Reports Hx Arthritis Psychiatric Medical History: Reports: Hx Anxiety, Hx Bipolar Disorder, Hx Depression - anxiety, Hx Post Traumatic Stress Disorder Past Surgical History: Reports: Hx Tubal Ligation. Denies: Hx Hysterectomy - Immunizations Hx Diphtheria, Pertussis, Tetanus Vaccination: Yes - 2012 Review of Systems - Review of Systems Notes: See history of present illness for pertinent positive review of systems; otherwise all review of systems have been reviewed and are negative Physical Exam - Vital signs Vitals: Temp Pulse Resp BP Pulse Ox 97.9 F 73 20 164/98 H 98 10/20/17 11:55 10/20/17 11:55 10/20/17 11:55 10/20/17 11:55 10/20/17 11:55 - Notes Notes: PHYSICAL EXAMINATION: GENERAL: Well-appearing and in no acute distress. HEAD: Atraumatic, normocephalic. EYES: Pupils equal round and reactive to light, extraocular movements intact, sclera anicteric, conjunctiva are normal. ENT: nares patent, oropharynx clear without exudates. Moist mucous membranes. NECK: Normal range of motion, supple without lymphadenopathy LUNGS: CTAB and equal. No wheezes rales. Minimal left lower lobe bronchi. No increased work of breathing HEART: Regular rate and rhythm without murmurs ABDOMEN: Soft, no tenderness. No guarding, no rebound EXTREMITIES: Normal range of motion, no pitting edema. No cyanosis. NEUROLOGICAL: Cranial nerves grossly intact. Normal sensory/motor exams. PSYCH: Normal mood, normal affect. SKIN: Warm, Dry, normal turgor, no rashes or lesions noted Course - Re-evaluation Re-evalutation: 10/20/17 13:36 MEDICAL DECISION MAKING: Concern for pneumonia versus bronchitis versus URI Will give trial of antibiotics and Tessalon Instructed follow-up PCP next day or few Patient understands and agrees to the plan of care - Vital Signs Vital signs: Temp Pulse Resp BP Pulse Ox 97.9 F 73 20 164/98 H 98 10/20/17 11:55 10/20/17 11:55 10/20/17 11:55 10/20/17 11:55 10/20/17 11:55 Discharge - Discharge Clinical Impression: Rhonchi Condition: Good Disposition: HOME, SELF-CARE Additional Instructions: Finish the antibiotics prescribed for presumed pneumonia. Do not skip any doses. You were seen in the emergency department at [facility]. If you were given any sedating medications, be sure not to operate heavy machinery (example - driving) and be sure you are not too sedated to walk appropriately. Please followup with your primary physician in the next few days for further management/evaluation. Please return to the emergency department for worsening of symptoms or any symptom that you deem to be concerning or life-threatening. Thank you for allowing us to be part of your care. Prescriptions: Benzonatate [Tessalon Perles 100 mg Capsule] 100 mg PO Q8HP PRN #40 capsule PRN Reason: Azithromycin [Zithromax 250 mg Tablet] 250 mg PO ASDIR PRN #6 tablet PRN Reason:
== END 2017-10-20 13:41 | disposition home or self-care (01) ==
LOC: ER 11:27
DX: R06.00 Dyspnea, unspecified (principal); R05 Cough; R06.02 Shortness of breath; F17.200 Nicotine dependence, unspecified, uncomplicated; E78.00 Pure hypercholesterolemia, unspecified; I10 Essential (primary) hypertension; Z88.0 Allergy status to penicillin; Z98.51 Tubal ligation status
CPT/HCPCS: 99284

== ENCOUNTER 2017-11-23 12:31 | Emergency (ER) | payer BC ==
[2017-11-23] MEDS ORDERED: NORMAL SALINE 1000 ML 1,000 ML IV ONE (13:43)
[2017-11-23] MEDS ORDERED: PROCHLORPERAZINE EDISYLATE INJ 10 MG/2 ML VIAL IV ONE (13:43)
[2017-11-23] MEDS ORDERED: ONDANSETRON HCL INJ/PF 4 MG/2 ML SDV IV ONE (13:43)
--- NOTE | 2017-11-23 13:44 | ER Document Report ---
ED Medical Screen (RME) - General Chief Complaint: High Blood Pressure Stated Complaint: BLOOD PRESSURE PROBLEM Time Seen by Provider: 11/23/17 13:38 TRAVEL OUTSIDE OF THE [place] IN LAST 30 DAYS: No COUNTRY TRAVELED TO/FROM: [facility] Notes: 11/23/17 13:44 Patient coming in for headache left arm numbness tingling weakness ongoing since yesterday. - Related Data Allergies/Adverse Reactions: meloxicam [Meloxicam] Allergy (Verified 11/23/17 12:33) Penicillins Allergy (Verified 11/23/17 12:33) tetracycline [Tetracycline] Allergy (Verified 11/23/17 12:33) Past Medical History - Social History Chew tobacco use (# tins/day): No Frequency of alcohol use: None Drug Abuse: None - Past Medical History Cardiac Medical History: Reports: Hx Hypercholesterolemia, Hx Hypertension - borderline, no meds Denies: Hx Heart Attack Pulmonary Medical History: Reports: Hx Bronchitis Denies: Hx Asthma, Hx COPD, Hx Pneumonia Neurological Medical History: Denies: Hx Seizures Renal/ Medical History: Reports: Hx Ovarian Cysts - FIBROIDS, Hx Renal Insufficiency. Denies: Hx Peritoneal Dialysis GI Medical History: Reports: Hx Diverticulitis, Hx Gastroesophageal Reflux Disease Musculoskeltal Medical History: Reports Hx Arthritis Psychiatric Medical History: Reports: Hx Anxiety, Hx Bipolar Disorder, Hx Depression - anxiety, Hx Post Traumatic Stress Disorder Past Surgical History: Reports: Hx Tubal Ligation. Denies: Hx Hysterectomy - Immunizations Hx Diphtheria, Pertussis, Tetanus Vaccination: Yes - 2013 Review of Systems - Review of Systems Constitutional: Other - Left arm tingling numbness or weakness greater than 24 hours Physical Exam - Vital signs Vitals: Temp Pulse Resp BP Pulse Ox 98.7 F 82 20 152/89 H 96 11/23/17 12:38 11/23/17 12:38 11/23/17 12:38 11/23/17 12:38 11/23/17 12:38 - Respiratory Respiratory status: No respiratory distress Chest status: Nontender Breath sounds: Normal Chest palpation: Normal Course - Vital Signs Vital signs: Temp Pulse Resp BP Pulse Ox 98.7 F 82 20 152/89 H 96 11/23/17 12:38 11/23/17 12:38 11/23/17 12:38 11/23/17 12:38 11/23/17 12:38
--- NOTE | 2017-11-23 14:19 | RADIOLOGY REPORT (SQ) ---
EXAM DESCRIPTION: CT HEAD WITHOUT COMPLETED DATE/TIME: 11/23/2017 2:08 pm REASON FOR STUDY: left arm numbness weakness COMPARISON: None. TECHNIQUE: Axial images acquired through the brain without intravenous contrast. Images reviewed wi th bone, brain and subdural windows. Additional sagittal and coronal reconstructions were generated. Images stored on PACS. All CT scanners at this facility use dose modulation, iterative reconstruction, and/or weight based d osing when appropriate to reduce radiation dose to as low as reasonably achievable (ALARA). [facility]: Dose Right [facility]: CareDose [facility]: Dose Right [facility]: Teradose 4D [facility]: [employer] RADIATION DOSE: CT Rad equipment meets quality standard of care and radiation dose reduction techniq ues were employed. CTDIvol: 53.2 mGy. DLP: 1044 mGy-cm. mGy. LIMITATIONS: None. FINDINGS: VENTRICLES: Normal size and contour. CEREBRUM: No masses. No hemorrhage. No midline shift. No evidence for acute infarction. Normal gra y/white matter differentiation. No areas of low density in the white matter. CEREBELLUM: No masses. No hemorrhage. No alteration of density. No evidence for acute infarction. EXTRAAXIAL SPACES: No fluid collections. No masses. ORBITS AND GLOBE: No intra- or extraconal masses. Normal contour of globe without masses. CALVARIUM: No fracture. PARANASAL SINUSES: No fluid or mucosal thickening. SOFT TISSUES: No mass or hematoma. OTHER: No other significant finding. IMPRESSION: NORMAL BRAIN CT WITHOUT CONTRAST. EVIDENCE OF ACUTE STROKE: NO. COMMENT: Quality ID # 436: Final reports with documentation of one or more dose reduction techniques (e.g., Automated exposure control, adjustment of the mA and/or kV according to patient size, use of iterative reconstruction technique) TECHNICAL DOCUMENTATION: JOB ID: [id number] [employer]- All Rights Reserved Reading location - IP/workstation name: [email or web address]
--- NOTE | 2017-11-23 14:36 | RADIOLOGY REPORT (SQ) ---
EXAM DESCRIPTION: SHOULDER LEFT 2 OR MORE VIEWS COMPLETED DATE/TIME: 11/23/2017 2:14 pm REASON FOR STUDY: left arm pain COMPARISON: 01/19/2016 NUMBER OF VIEWS: Three views. TECHNIQUE: Internal rotation, external rotation, and Y view images acquired of the left shoulder. LIMITATIONS: None. FINDINGS: MINERALIZATION: Normal. BONES: No acute fracture or dislocation. No worrisome bone lesions. JOINTS: No dislocation. VISUALIZED LUNGS AND RIBS: No pneumothorax. No rib fracture. SOFT TISSUES: No radiopaque foreign body. OTHER: No other significant finding. IMPRESSION: NEGATIVE STUDY OF THE LEFT SHOULDER. NO RADIOGRAPHIC EVIDENCE OF ACUTE INJURY. TECHNICAL DOCUMENTATION: JOB ID: [id number] [employer]- All Rights Reserved Reading location - IP/workstation name: [email or web address]
--- NOTE | 2017-11-23 14:37 | RADIOLOGY REPORT (SQ) ---
EXAM DESCRIPTION: CERV SP 4 OR 5 VIEWS COMPLETED DATE/TIME: 11/23/2017 2:14 pm REASON FOR STUDY: left arm pain COMPARISON: February 2012 NUMBER OF VIEWS: Five views. TECHNIQUE: AP, lateral, obliques and odontoid radiographic images acquired of the cervical spine. LIMITATIONS: None. FINDINGS: MINERALIZATION: Normal. ALIGNMENT: Anatomic. VERTEBRAE: Vertebral bodies of normal height. DISCS: There is some mild decrease in the C5-C6 disc space heights when correlated with the previous study. No other significant disc space reduction is seen. FORAMINA: No osteophytes or foraminal narrowing. LATERAL AND POSTERIOR ELEMENTS: Facets, lateral masses and spinous processes without significant find ings. HARDWARE: None in the spine. SOFT TISSUES: No masses or calcifications. Lung apices clear. OTHER: No other significant finding. IMPRESSION: Mild decrease in the C5-C6 disc space height. No other significant vertebral compressio n or disc space reduction is seen. TECHNICAL DOCUMENTATION: JOB ID: [id number] [employer]- All Rights Reserved Reading location - IP/workstation name: [email or web address]
--- NOTE | 2017-11-23 14:42 | ER Document Report ---
ED Blood Pressure Problem - General Chief Complaint: High Blood Pressure Stated Complaint: BLOOD PRESSURE PROBLEM Time Seen by Provider: 11/23/17 13:38 Mode of Arrival: Ambulatory Information source: Patient TRAVEL OUTSIDE OF THE [place] IN LAST 30 DAYS: No COUNTRY TRAVELED TO/FROM: [facility] Patient complains to provider of: High blood pressure Onset: Other - 4 WEEKS Onset/Duration: Gradual, Persistent, Worse - LAST 2 DAYS Quality of pain: Achy, Dull Severity: Mild Problem is: Chronic problem Pt currently taking medication for problem: Yes - LISINOPRIL 20mg DAILY Associated symptoms: Headache. denies: Chest pain, Dizziness, Nausea, Syncope, Trouble breathing, Weakness Similar symptoms previously: No Recently seen / treated by doctor: Yes - 4 WKS AGO, F/U SCHEDULED 11/25. - Related Data Allergies/Adverse Reactions: meloxicam [Meloxicam] Allergy (Verified 11/23/17 12:33) Penicillins Allergy (Verified 11/23/17 12:33) tetracycline [Tetracycline] Allergy (Verified 11/23/17 12:33) Past Medical History - General Information source: Patient - Social History Smoking Status: Current Every Day Smoker Cigarette use (# per day): Yes Chew tobacco use (# tins/day): No Smoking Education Provided: No Frequency of alcohol use: None Drug Abuse: None Family History: Reviewed & Not Pertinent, CAD - mother Patient has suicidal ideation: No Patient has homicidal ideation: No - Past Medical History Cardiac Medical History: Reports: Hx Hypercholesterolemia, Hx Hypertension - borderline, no meds Denies: Hx Heart Attack Pulmonary Medical History: Reports: Hx Bronchitis Denies: Hx Asthma, Hx COPD, Hx Pneumonia Neurological Medical History: Denies: Hx Seizures Renal/ Medical History: Reports: Hx Ovarian Cysts - FIBROIDS, Hx Renal Insufficiency. Denies: Hx Peritoneal Dialysis GI Medical History: Reports: Hx Diverticulitis, Hx Gastroesophageal Reflux Disease Musculoskeltal Medical History: Reports Hx Arthritis Psychiatric Medical History: Reports: Hx Anxiety, Hx Bipolar Disorder, Hx Depression - anxiety, Hx Post Traumatic Stress Disorder Past Surgical History: Reports: Hx Tubal Ligation. Denies: Hx Hysterectomy - Immunizations Hx Diphtheria, Pertussis, Tetanus Vaccination: Yes - 2012 Review of Systems - Review of Systems Constitutional: No symptoms reported EENT: No symptoms reported Cardiovascular: No symptoms reported Respiratory: No symptoms reported Gastrointestinal: No symptoms reported Genitourinary: No symptoms reported Musculoskeletal: Back pain - CHRONIC, Neck pain - CHRONIC Neurological/Psychological: See HPI Physical Exam - Vital signs Vitals: Temp Pulse Resp BP Pulse Ox 98.7 F 82 20 152/89 H 96 11/23/17 12:38 11/23/17 12:38 11/23/17 12:38 11/23/17 12:38 11/23/17 12:38 Interpretation: Hypertensive. No: Tachycardic, Tachypneic, Febrile - General General appearance: Appears well, Alert In distress: None - HEENT Head: Normocephalic Eyes: Normal Conjunctiva: Normal Ears: Normal Nasal: Normal Mouth/Lips: Normal Mucous membranes: Normal - Respiratory Respiratory status: No respiratory distress Breath sounds: Normal - Cardiovascular Rhythm: Regular Heart sounds: Normal auscultation Murmur: No - Abdominal Inspection: Obese - Back Back: Normal - Extremities General upper extremity: Normal inspection General lower extremity: Normal inspection. No: Edema - Neurological Neuro grossly intact: Yes Cognition: Normal Orientation: AAOx4 - Psychological Associated symptoms: Normal affect, Normal mood - Skin Skin Temperature: Warm Skin Moisture: Dry Skin Color: Normal Skin Turgor: Elastic Course - Vital Signs Vital signs: Temp Pulse Resp BP Pulse Ox 98.7 F 82 20 152/89 H 96 11/23/17 12:38 11/23/17 12:38 11/23/17 12:38 11/23/17 12:38 11/23/17 12:38 Discharge - Discharge Clinical Impression: Essential hypertension Headache Qualifiers: Headache type: unspecified Headache chronicity pattern: acute headache Intractability: not intractable Qualified Code(s): R51 - Headache Condition: Stable Disposition: HOME, SELF-CARE Instructions: High Blood Pressure, Requiring Treatment ([facility]), Beta Blockers ( [facility]), Angiotensin Converting Enzyme Inhibitor Medication ([facility]), Headache ([facility]) Additional Instructions: REST, DRINK PLENTY OF FLUIDS. CONTINUE TAKING LISINOPRIL USUAL. TONIGHT, BEGIN TAKING LOPRESSOR, 12.5 mg EACH EVENING. FOLLOW UP SCHEDULED WITH YOUR PRIMARY CARE PROVIDER. RETURN TO E.R. IF PROBLEMS. Prescriptions: Metoprolol Tartrate [Lopressor 25 mg Tablet] 12.5 mg PO DAILY #30 tab
--- NOTE | 2017-11-23 14:51 | EKG REPORT ---
SEVERITY:- OTHERWISE NORMAL ECG - SINUS RHYTHM INTERPOLATED VENTRICULAR PREMATURE COMPLEX : Confirmed by: Willie Vela MD 23-Nov-2017 14:50:44
[2017-11-23] MEDS ORDERED: METOPROLOL TARTRATE 25 MG TABLET PO ONE (15:01)
[2017-11-23] MEDS ORDERED: ACETAMINOPHEN 325 MG TABLET PO ONE (15:09)
[2017-11-23 16:40] VITALS: BP 125/83
== END 2017-11-23 16:40 | disposition home or self-care (01) ==
LOC: ER 12:31
DX: I10 Essential (primary) hypertension (principal); R51 Headache; F17.210 Nicotine dependence, cigarettes, uncomplicated; E78.00 Pure hypercholesterolemia, unspecified; Z88.0 Allergy status to penicillin; Z98.51 Tubal ligation status
CPT/HCPCS: 36415; 70450; 72050; 93005; 93010; 99284

== ENCOUNTER 2017-11-30 18:06 | Observation (INO) | payer BC ==
[2017-11-30] MEDS ORDERED: ASPIRIN 81 MG TABLET, CHEWABLE PO ONE (19:12)
--- NOTE | 2017-11-30 19:13 | ER Document Report ---
ED Medical Screen (RME) - General Chief Complaint: Chest Pain Stated Complaint: CHEST PAIN Time Seen by Provider: 11/30/17 19:02 Notes: RAPID MEDICAL EVALUATION DISCLOSURE I have seen this patient as part of a Rapid Medical Evaluation and, if applicable, placed any initially appropriate orders. The patient will be seen and fully evaluated, including a full history and physical exam, by a provider ( in Main ED or Fast Track) when a room becomes available. 52-year-old female here with complaints of left-sided sharp chest pain radiating up to the left shoulder and down the left arm with shortness of breath nausea diaphoresis that occurred approximately 2 hours ago. She was told to come here by her coworkers to get checked out. She reports her blood pressures have been out of control recently. EXAM CTAB RRR TRAVEL OUTSIDE OF THE [place] IN LAST 30 DAYS: No COUNTRY TRAVELED TO/FROM: [place] - Related Data Allergies/Adverse Reactions: meloxicam [Meloxicam] Allergy (Verified 11/23/17 12:33) Penicillins Allergy (Verified 11/23/17 12:33) tetracycline [Tetracycline] Allergy (Verified 11/23/17 12:33) Past Medical History - Social History Chew tobacco use (# tins/day): No Frequency of alcohol use: None Drug Abuse: None - Past Medical History Cardiac Medical History: Reports: Hx Hypercholesterolemia, Hx Hypertension Denies: Hx Heart Attack Pulmonary Medical History: Reports: Hx Bronchitis Denies: Hx Asthma, Hx COPD, Hx Pneumonia Neurological Medical History: Denies: Hx Seizures Renal/ Medical History: Reports: Hx Ovarian Cysts - FIBROIDS, Hx Renal Insufficiency. Denies: Hx Peritoneal Dialysis GI Medical History: Reports: Hx Diverticulitis, Hx Gastroesophageal Reflux Disease Musculoskeltal Medical History: Reports Hx Arthritis Psychiatric Medical History: Reports: Hx Anxiety, Hx Bipolar Disorder, Hx Depression - anxiety, Hx Post Traumatic Stress Disorder Past Surgical History: Reports: Hx Tubal Ligation. Denies: Hx Hysterectomy - Immunizations Hx Diphtheria, Pertussis, Tetanus Vaccination: Yes - 2012 Physical Exam - Vital signs Vitals: Temp Pulse Resp BP Pulse Ox 98.7 F 71 16 147/90 H 97 11/30/17 18:20 11/30/17 18:20 11/30/17 18:20 11/30/17 18:20 11/30/17 18:20 Course - Vital Signs Vital signs: Temp Pulse Resp BP Pulse Ox 98.7 F 71 16 147/90 H 97 11/30/17 18:20 11/30/17 18:20 11/30/17 18:20 11/30/17 18:20 11/30/17 18:20
--- NOTE | 2017-11-30 20:28 | RADIOLOGY REPORT (SQ) ---
EXAM DESCRIPTION: CHEST 2 VIEWS COMPLETED DATE/TIME: 11/30/2017 7:56 pm REASON FOR STUDY: CP SOB COMPARISON: 09/27/2017 EXAM PARAMETERS: NUMBER OF VIEWS: two views TECHNIQUE: Digital Frontal and Lateral radiographic views of the chest acquired. RADIATION DOSE: NA LIMITATIONS: none FINDINGS: LUNGS AND PLEURA: No acute opacities, masses or pneumothorax. No pleural effusion. MEDIASTINUM AND HILAR STRUCTURES: Stable. HEART AND VASCULAR STRUCTURES: Heart normal size. No evidence for failure. BONES: No acute findings. HARDWARE: None in the chest. OTHER: No other significant finding. IMPRESSION: NO ACUTE RADIOGRAPHIC FINDING IN THE CHEST. TECHNICAL DOCUMENTATION: JOB ID: [id number] [id number] 2010 [employer]- All Rights Reserved Reading location - IP/workstation name: [email or web address]
[2017-11-30 20:46] LABS: ABSOLUTE EOSINOPHILS # (AUTO) 0.3 10^3/uL (0.0-0.6); ABSOLUTE LYMPHOCYTES (AUTO) 4.3 10^3/uL (0.5-4.7); ABSOLUTE MONOCYTES (AUTO) 0.8 10^3/uL (0.1-1.4); ABSOLUTE NEUT (AUTO) 5.8 10^3/uL (1.7-8.2); BASOPHILS % (AUTO) 0.2 % (0-2); EOSINOPHILS % (AUTO) 2.5 % (0-6); HEMATOCRIT 44.8 % (36.0-47.0); HEMOGLOBIN 15.1 g/dL (12.0-15.5); LYMPHOCYTES % (AUTO) 38.7 % (13-45); MEAN CORPUSCULAR HEMOGLOBIN 30.6 pg (27.0-33.4); MEAN CORPUSCULAR HGB CONC 33.7 g/dL (32.0-36.0); MEAN CORPUSCULAR VOLUME 91 fl (80-97); MONOCYTES % (AUTO) 6.9 % (3-13); PLATELET COUNT 313 10^3/uL (150-450); RED BLOOD COUNT 4.92 10^6/uL (3.72-5.28); RED CELL DISTRIBUTION WIDTH 13.4 % (11.5-14.0); SEGMENTED NEUTROPHILS % (AUTO) 51.7 % (42-78); TOTAL CELLS COUNTED % (AUTO) 100 %; WHITE BLOOD COUNT 11.2 10^3/uL (4.0-10.5)
[2017-11-30 21:07] LABS: ANION GAP 11 (5-19); BLOOD UREA NITROGEN 14 mg/dL (7-20); CALCIUM 10.1 mg/dL (8.4-10.2); CARBON DIOXIDE 31 mmol/L (22-30); CHLORIDE 102 mmol/L (98-107); GLUCOSE 81 mg/dL (75-110); POTASSIUM 4.8 mmol/L (3.6-5.0); SODIUM 143.8 mmol/L (137-145)
--- NOTE | 2017-11-30 21:14 | EKG REPORT ---
SEVERITY:- NORMAL ECG - SINUS RHYTHM : Confirmed by: Wally Ferguson 30-Nov-2017 21:13:02
--- NOTE | 2017-11-30 21:51 | ER Document Report ---
ED Cardiac - General Chief Complaint: Chest Pain Stated Complaint: CHEST PAIN Time Seen by Provider: 11/30/17 19:02 Mode of Arrival: Ambulatory Information source: Patient Notes: This is a 52-year-old female with a history of hypertension, CVA, obstructive sleep apnea, dyslipidemia, active smoker. The patient presents to the emergency room after an episode of retrosternal chest pain radiating to the jaw , and shoulder which was associated with lightheadedness, nausea, facial flushing and diaphoresis. Patient states that the pain resolved spontaneously. She does have a family history of coronary artery disease (her the mother at age 56 of a massive heart attack). The patient does report that her blood pressure has been irregular lately. TRAVEL OUTSIDE OF THE [place] IN LAST 30 DAYS: No COUNTRY TRAVELED TO/FROM: [facility] Patient complains to provider of: Chest pain Use of: denies: Alcohol, Amphetamines, Bath salts, Caffeine, Cocaine, Decongestants, Other Was the onset of pain: Gradual Chest pain location: Substernal Quality of pain: Pressure, Sharp Chest pain radiation location: Left jaw, Left arm, Left shoulder Severity now: None Severity at worst: Moderate Pain level currently: Denies Chest pain precipitating factors: At Rest Cardiac risk factors: Hypertension, Smoker, + Family history, Dyslipidemia Positive cardiac history: No Associated symptoms: Diaphoresis, Jaw pain, Lightheaded Exacerbated by: Denies Relieved by: Nothing Similar symptoms previously: No Recently seen / treated by doctor: Yes - Related Data Allergies/Adverse Reactions: meloxicam [Meloxicam] Allergy (Verified 11/23/17 12:33) Penicillins Allergy (Verified 11/23/17 12:33) tetracycline [Tetracycline] Allergy (Verified 11/23/17 12:33) Past Medical History - General Information source: Patient - Social History Smoking Status: Current Every Day Smoker Cigarette use (# per day): Yes - One third pack per day Chew tobacco use (# tins/day): No Frequency of alcohol use: None Drug Abuse: None Lives with: Family Family History: Reviewed & Not Pertinent, CAD - mother Patient has suicidal ideation: No Patient has homicidal ideation: No - Past Medical History Cardiac Medical History: Reports: Hx Hypercholesterolemia, Hx Hypertension Denies: Hx Heart Attack Pulmonary Medical History: Reports: Hx Bronchitis Denies: Hx Asthma, Hx COPD, Hx Pneumonia Neurological Medical History: Denies: Hx Seizures Renal/ Medical History: Reports: Hx Ovarian Cysts - FIBROIDS, Hx Renal Insufficiency. Denies: Hx Peritoneal Dialysis GI Medical History: Reports: Hx Diverticulitis, Hx Gastroesophageal Reflux Disease Musculoskeltal Medical History: Reports Hx Arthritis Psychiatric Medical History: Reports: Hx Anxiety, Hx Bipolar Disorder, Hx Depression - anxiety, Hx Post Traumatic Stress Disorder Past Surgical History: Reports: Hx Tubal Ligation. Denies: Hx Hysterectomy - Immunizations Hx Diphtheria, Pertussis, Tetanus Vaccination: Yes - 2012 Review of Systems - Review of Systems Constitutional: denies: Chills, Fever EENT: No symptoms reported Cardiovascular: See HPI Respiratory: See HPI Gastrointestinal: No symptoms reported Genitourinary: No symptoms reported Female Genitourinary: No symptoms reported Musculoskeletal: No symptoms reported Skin: No symptoms reported Hematologic/Lymphatic: No symptoms reported Neurological/Psychological: No symptoms reported Physical Exam - Vital signs Vitals: Temp Pulse Resp BP Pulse Ox 98.7 F 71 16 147/90 H 97 11/30/17 18:20 11/30/17 18:20 11/30/17 18:20 11/30/17 18:20 11/30/17 18:20 Notes: Physical exam: GENERAL: 52-year-old female, alert and oriented 3, no acute distress HEAD: Atraumatic, normocephalic. EYES: Pupils equal round and reactive to light, extraocular movements intact, sclera anicteric, conjunctiva are normal. ENT: TMs normal, nares patent, oropharynx clear without exudates. Moist mucous membranes. NECK: Normal range of motion, supple without obvious mass or JVD. LUNGS: Breath sounds clear to auscultation bilaterally and equal. No wheezes rales or rhonchi. HEART: Regular rate and rhythm without murmurs, rubs or gallops. ABDOMEN: Soft, normoactive bowel sounds. No tenderness to palpation. No guarding, no rebound. No masses appreciated. EXTREMITIES: Normal range of motion, no pitting or edema. No clubbing or cyanosis. NEUROLOGICAL: Cranial nerves II through XII grossly intact. Normal speech, moving all extremities. PSYCH: Normal mood, normal affect. SKIN: Warm, Dry, normal turgor, no rashes or lesions noted. Course - Vital Signs Vital signs: Temp Pulse Resp BP Pulse Ox 98.7 F 60 11 L 128/94 H 94 11/30/17 18:20 12/01/17 02:00 12/01/17 00:00 11/30/17 23:48 12/01/17 00:00 - Laboratory Result Diagrams: 11/30/17 20:08 11/30/17 20:08 Laboratory results interpreted by me: 11/30/17 11/30/17 20:08 20:08 WBC 11.2 H Carbon Dioxide 31 H - Diagnostic Test Radiology reviewed: Image reviewed, Reports reviewed - Stat x-ray shows no infiltrates - EKG Interpretation by Me Rate: Normal Rhythm: NSR - KG shows normal sinus rhythm with a ventricular rate of 65, no acute ST-T wave changes Discharge - Discharge Clinical Impression: Chest pain Condition: Stable Disposition: ADMITTED OBSERVATION Admitting Provider: Hospitalist - dr Smithwalling Unit Admitted: Telemetry
[2017-11-30] MEDS ORDERED: DEXTROSE 40% GEL 15 GM TUBE PO PRN ×2 (22:06)
[2017-11-30] MEDS ORDERED: DEXTROSE 50%-WATER 25 GM/50 ML DISP.SYRIN IV PRN ×2 (22:06)
[2017-11-30] MEDS ORDERED: GLUCAGON,HUMAN RECOMB 1 MG INJ SUBCUT PRN (22:06)
[2017-11-30] MEDS ORDERED: ACETAMINOPHEN 325 MG TABLET PO PRN (22:06)
[2017-11-30] MEDS ORDERED: ONDANSETRON HCL INJ/PF 4 MG/2 ML SDV IV PRN (22:06)
--- NOTE | 2017-11-30 22:23 | PDOC H&P ---
History of Present Illness Admission Date/PCP: 11/30/17 21:58 ADALBERTO PATEL MD History of Present Illness: MADISON ALVA is a 52 year old female patient who is in her usual baseline state of health up until this morning when she started to have chest pain described as pressure-like localized to her mid sternum, radiating to her neck and shoulder and is also associated with shortness of breath nausea flushing and diaphoresis. The chest pain subsided spontaneously without intervention. Patient reports that she had had similar illness in the past. Patient has history of stroke with mild residual right-sided weakness. Patient has history of hypertension, hyperlipidemia, obstructive sleep apnea, depression , PTSD and she is active smoker. Patient denied any vomiting, abdominal pain, diarrhea or urinary complaints. She endorses headache, dizziness but no change in her visual status or seizure activity. Strong family history of massive heart attack in her mom who at the age of 57. Past Medical History Cardiac Medical History: Reports: Hyperlipidema, Hypertension Denies: Myocardial Infarction Pulmonary Medical History: Reports: Bronchitis Denies: Asthma, Chronic Obstructive Pulmonary Disease (COPD), Pneumonia Neurological Medical History: Denies: Seizures GI Medical History: Reports: Diverticulitis, Gastroesophageal Reflux Disease Musculoskeltal Medical History: Reports: Arthritis Psychiatric Medical History: Reports: Bipolar Disorder, Depression - anxiety, Post Traumatic Stress Disorder Hematology: Reports: Anemia - with Past Surgical History Past Surgical History: Reports: Tubal Ligation Denies: Hysterectomy Social History Lives with: Family Smoking Status: Current Every Day Smoker Frequency of Alcohol Use: None Hx Recreational Drug Use: Yes Drugs: Marijuana - Advance Directive Resuscitation Status: Full Code Family History Family History: Reviewed & Not Pertinent, CAD - mother, DM, Hypertension Parental Family History Reviewed: Yes Children Family History Reviewed: Yes Sibling(s) Family History Reviewed.: Yes Medication/Allergy Home Medications: Azithromycin [Zithromax 250 mg Tablet] 250 mg PO ASDIR PRN #6 tablet 10/20/17 Benzonatate [Tessalon Perles 100 mg Capsule] 100 mg PO Q8HP PRN #40 capsule 11/03 Metoprolol Tartrate [Lopressor 25 mg Tablet] 12.5 mg PO DAILY #30 tab 11/23/17 Allergies/Adverse Reactions: meloxicam [Meloxicam] Allergy (Verified 11/23/17 12:33) Penicillins Allergy (Verified 11/23/17 12:33) tetracycline [Tetracycline] Allergy (Verified 11/23/17 12:33) Review of Systems Constitutional: PRESENT: as per HPI Eyes: PRESENT: as per HPI Ears: PRESENT: as per HPI Respiratory: PRESENT: as per HPI Gastrointestinal: PRESENT: as per HPI Neurological: PRESENT: as per HPI Psychiatric: PRESENT: as per HPI Physical Exam Vital Signs: Temp Pulse Resp BP Pulse Ox 98.7 F 71 16 147/90 H 97 11/30/17 18:20 11/30/17 18:20 11/30/17 18:20 11/30/17 18:20 11/30/17 18:20 General appearance: PRESENT: no acute distress Head exam: PRESENT: atraumatic, normocephalic Respiratory exam: PRESENT: clear to auscultation bridgett. ABSENT: rales, rhonchi, wheezes Cardiovascular exam: PRESENT: RRR. ABSENT: diastolic murmur, rubs, systolic murmur Neurological exam: PRESENT: alert, awake, oriented to time, oriented to situation Results Impressions: Chest X-Ray 11/30/17 19:12 IMPRESSION: NO ACUTE RADIOGRAPHIC FINDING IN THE CHEST. Assessment & Plan - Diagnosis (1) Chest pain Qualifiers: Chest pain type: other chest pain Qualified Code(s): R07.89 - Other chest pain; R07.8 - Other chest pain Is this a current diagnosis for this admission?: Yes Plan: Since patient has several risk factors for acute coronary syndrome she is admitted for observation. We will trend her cardiac enzymes and cardiac stress test in the morning. (2) Hypertension Qualifiers: Hypertension type: essential hypertension Qualified Code(s): I10 - Essential (primary) hypertension Is this a current diagnosis for this admission?: Yes Plan: Continue her home medications including lisinopril and metoprolol. (4) Obstructive sleep apnea Is this a current diagnosis for this admission?: Yes Plan: Continue her CPAP. (5) Bipolar disorder Is this a current diagnosis for this admission?: Yes Plan: Currently in remission (6) Tobacco dependence Is this a current diagnosis for this admission?: Yes Plan: Patient counseled and encouraged to quit smoking. - Time Critical Time spent with patient: 25-34 minutes
[2017-11-30] MEDS ORDERED: LISINOPRIL 10 MG TABLET PO ONE (23:15)
[2017-11-30] MEDS ORDERED: METOPROLOL TARTRATE 25 MG TABLET PO ONE (23:15)
[2017-12-01 05:03] LABS: HEMATOCRIT 41.9 % (36.0-47.0); HEMOGLOBIN 14.1 g/dL (12.0-15.5); MEAN CORPUSCULAR HEMOGLOBIN 30.4 pg (27.0-33.4); MEAN CORPUSCULAR HGB CONC 33.6 g/dL (32.0-36.0); MEAN CORPUSCULAR VOLUME 91 fl (80-97); PLATELET COUNT 240 10^3/uL (150-450); RED BLOOD COUNT 4.63 10^6/uL (3.72-5.28); RED CELL DISTRIBUTION WIDTH 13.3 % (11.5-14.0); WHITE BLOOD COUNT 10.6 10^3/uL (4.0-10.5)
[2017-12-01 05:35] LABS: CHOLESTEROL 182.76 mg/dL (0-200); TRIGLYCERIDES 269 mg/dL (<150)
[2017-12-01 05:46] LABS: DIRECT LDL 102 mg/dL (<100)
[2017-12-01 05:48] LABS: VLDL CHOLESTEROL 53.8 mg/dL (10-31)
[2017-12-01] MEDS ORDERED: LANSOPRAZOLE 30 MG TAB.RAP.DR PO SCH (06:00)
[2017-12-01] MEDS ORDERED: LISINOPRIL 10 MG TABLET PO SCH ×2 (10:00→22:00)
[2017-12-01] MEDS ORDERED: ENOXAPARIN SODIUM INJ 40 MG/0.4 ML DISP.SYRIN SUBCUT SCH (10:00)
[2017-12-01] MEDS ORDERED: METOPROLOL TARTRATE 25 MG TABLET PO SCH (10:00)
[2017-12-01] MEDS ORDERED: REGADENOSON INJ 0.4 MG/5 ML DISP.SYRIN IV ONE (12:00)
[2017-12-01 12:20] VITALS: BP 117/70
--- NOTE | 2017-12-02 16:56 | DRAGON STRESS TEST REPORT ---
Intravenous Lexiscan Cardiolite stress test using single photon emmision computerized tomography. Date of procedure: 12/01/2017. Ordering Provider: Dr. Ramires. Patient's status: In Patient Indication: Chest pain. Coronary risk factors: Diabetes mellitus, hypertension , dyslipidemia, tobacco abuse disorder, and family history of coronary artery disease. Resting EKG: Sinus Rhythm. Within Normal Limits. Stress EKG:[ No changes of ischemia. The patient no chest pain or discomfort, and no arrhythmias seen. Reason for termination: Protocol. Conclusions: Normal EKG and hemodynamic response to IV Lexiscan. Nuclear data: At rest the patient was given 13.97 millicuries of technetium 99m sestamibi injected intravenously. As per protocol rest non gated SPECT images were obtained. Subsequently the patient was given intravenous Lexiscan at a dose of 0.4 mg in 5 mL intravenously, followed by flush with normal saline. Subsequently the stress dose of 43.6 millicuries of technetium 99m sestamibi was injected intravenously. As per protocol stress gated images were obtained. Nuclear interpretation: Review of images showed that all segments of the myocardium had normal perfusion at rest, and normal perfusion post stress with IV Lexiscan. All segments of the myocardium had normal motion, contraction, and thickening by gated study. T. I D. ratio was read as abnormal at 1.28. Visually this is not reliable, and appears to be much lower than that, and within normal limits.. Computer read rest, and stress left ventricular ejection fraction were 50 %, and 61 %, respectively. Visually both the stress and rest ejection fractions were normal , and greater than 60 %. Conclusion: 1. There is no scintigraphic evidence of Lexiscan induced myocardial ischemia. 2. There is no scintigraphic evidence of myocardial infarction/scar. Recommendations: Aggressive risk factor modification, and treating the underlying co- morbidities. MTDD
--- NOTE | 2017-12-03 18:41 | PDOC DISCHARGE SUMMARY ---
General - Admit/Disc Date/PCP Admission Date/Primary Care Provider: 11/30/17 21:58 ADALBERTO PATEL MD Discharge Date: 12/01/17 - Discharge Diagnosis (1) Bipolar disorder Is this a current diagnosis for this admission?: Yes (2) Chest pain Is this a current diagnosis for this admission?: Yes (4) Hypertension Is this a current diagnosis for this admission?: Yes (5) Obstructive sleep apnea Is this a current diagnosis for this admission?: Yes (6) Tobacco dependence Is this a current diagnosis for this admission?: Yes - Additional Information Resuscitation Status: Full Code Discharge Diet: Cardiac Discharge Activity: Activity As Tolerated Prescriptions: [place]-3 Fatty Acids/Fish Oil [[place] 3 Fish Oil Softgel] 1 each PO BID 30 Days # 60 capsule. Home Medications: Citalopram Hydrobromide [Celexa 10 mg Tablet] 10 mg PO DAILY 12/01/17 Lisinopril [Zestril] 10 mg PO DAILY #30 12/01/17 Metoprolol Tartrate [Lopressor 25 mg Tablet] 25 mg PO BID #60 tab 12/01/17 [place]-3 Fatty Acids/Fish Oil [[place] 3 Fish Oil Softgel] 1 each PO BID 30 Days # 60 capsule. 12/01/17 Pravastatin Sodium [Pravachol] 40 mg PO QHS 12/01/17 History of Present Illness Patient complains of: chest pains History of Present Illness: MADISON ALVA is a 52 year old female patient who is in her usual baseline state of health up until this morning when she started to have chest pain described as pressure-like localized to her mid sternum, radiating to her neck and shoulder and is also associated with shortness of breath nausea flushing and diaphoresis. The chest pain subsided spontaneously without intervention. Patient reports that she had had similar illness in the past. Patient has history of stroke with mild residual right-sided weakness. Patient has history of hypertension, hyperlipidemia, obstructive sleep apnea, depression , PTSD and she is active smoker. Hospital Course Hospital Course: 1- Chest pain Patient's pain resolved without nitrates Patient was treated with Aspirin, Lipitor She was monitered and did not have cardiac arrhythmia serial troponins were normal 11/30/17 11/30/17 12/01/17 20:08 20:08 04:11 WBC 10.6 H Hgb 14.1 Hct 41.9 Sodium 143.8 Potassium 4.8 Chloride 102 Carbon Dioxide 31 H BUN 14 Creatinine 0.65 Troponin I < 0.012 Triglycerides Cholesterol LDL Cholesterol Direct VLDL Cholesterol HDL Cholesterol 12/01/17 12/01/17 12/01/17 04:11 04:11 07:11 WBC Hgb Hct Sodium Potassium Chloride Carbon Dioxide BUN Creatinine Troponin I < 0.012 < 0.012 Triglycerides 269 H Cholesterol 182.76 LDL Cholesterol Direct 102 H VLDL Cholesterol 53.8 H HDL Cholesterol 43 cardiolyte stress test was performed and was negative for ischemia 2-Hyperlipidemia Patient was discharged on pravastatin and omega 3 fatty acids Physical Exam Vital Signs: Temp Pulse Resp BP Pulse Ox 97.6 F 72 12 117/70 96 12/01/17 15:02 12/01/17 15:02 12/01/17 15:02 12/01/17 15:02 12/01/17 15:02 Intake & Output 12/01/17 12/02/17 12/03/17 00:59 00:59 00:59 Intake Total 0 Balance 0 Weight 95.1 kg General appearance: PRESENT: no acute distress Head exam: PRESENT: atraumatic, normocephalic Respiratory exam: PRESENT: clear to auscultation bridgett. ABSENT: rales, rhonchi, wheezes Cardiovascular exam: PRESENT: RRR. ABSENT: diastolic murmur, rubs, systolic murmur Abdomen soft non tender no organomegaly NBS Neurological exam: PRESENT: alert, awake, oriented to time, oriented to situation Results Laboratory Results: 12/01/17 04:11 12/01/17 12/01/17 04:11 07:11 Troponin I < 0.012 < 0.012 Impressions: Chest X-Ray 11/30/17 19:12 IMPRESSION: NO ACUTE RADIOGRAPHIC FINDING IN THE CHEST. Qualifiers - * PATIENT BEING DISCHARGED WITH ANY OF THE FOLLOWING DIAGNOSIS: No Plan Discharge Plan: follow up with Dr Patel and Dr Martinez Time Spent: Greater than 30 Minutes
== END 2017-12-01 15:50 | disposition home or self-care (01) ==
LOC: ER 18:06 → EH 21:58 → 5 12-01 00:42
PROVIDERS: ADMIT Internal Medicine; ATTEND Internal Medicine
DX: R07.89 Other chest pain (principal); F31.9 Bipolar disorder, unspecified; I10 Essential (primary) hypertension; G47.33 Obstructive sleep apnea (adult) (pediatric); F17.210 Nicotine dependence, cigarettes, uncomplicated; I69.351 Hemiplegia and hemiparesis following cerebral infarction affecting right dominant side; R11.0 Nausea; R06.02 Shortness of breath; R23.2 Flushing; R61 Generalized hyperhidrosis; R51 Headache; E78.5 Hyperlipidemia, unspecified; R42 Dizziness and giddiness; R68.84 Jaw pain; Z79.899 Other long term (current) drug therapy; Z98.51 Tubal ligation status; Z82.49 Family history of ischemic heart disease and other diseases of the circulatory system
CPT/HCPCS: 93005; 99285; 36415 ×2; 84443; 85025; 85027; 80048; 84484 ×2; 80061; 93017; 71046; 78452; 93010; G0378 ×2; A9500; J2785; J1650; J3490; Q9969

== ENCOUNTER 2018-01-05 12:01 | Emergency (ER) | payer BC ==
[2018-01-05 12:07] VITALS: BP 133/88
--- NOTE | 2018-01-05 12:36 | ER Document Report ---
HPI - HPI Patient complains to provider of: Dental and mouth pain Pain Level: 5 Context: Patient is a 52-year-old female complaining of pain and swelling to her left jaw. She also has a sore throat. She has a known broken tooth #15. Associated Symptoms: None Exacerbated by: Other - Talking and eating Relieved by: Denies Similar symptoms previously: No Recently seen / treated by doctor: No - REPRODUCTIVE Reproductive: DENIES: : Past Medical History - General Information source: Patient - Social History Smoking Status: Current Every Day Smoker Frequency of alcohol use: None Drug Abuse: None Lives with: Family Family History: Reviewed & Not Pertinent, CAD - mother - Past Medical History Cardiac Medical History: Reports: Hx Hypercholesterolemia, Hx Hypertension Denies: Hx Heart Attack Pulmonary Medical History: Reports: Hx Bronchitis Denies: Hx Asthma, Hx COPD, Hx Pneumonia Neurological Medical History: Denies: Hx Seizures Renal/ Medical History: Reports: Hx Ovarian Cysts - FIBROIDS, Hx Renal Insufficiency. Denies: Hx Peritoneal Dialysis GI Medical History: Reports: Hx Diverticulitis, Hx Gastroesophageal Reflux Disease Musculoskeltal Medical History: Reports Hx Arthritis Psychiatric Medical History: Reports: Hx Anxiety, Hx Bipolar Disorder, Hx Depression - anxiety, Hx Post Traumatic Stress Disorder Past Surgical History: Reports: Hx Tubal Ligation. Denies: Hx Hysterectomy - Immunizations Hx Diphtheria, Pertussis, Tetanus Vaccination: Yes - 2013 [facility] Provider Document - CONSTITUTIONAL Agree With Documented VS: Yes Exam Limitations: No Limitations - INFECTION CONTROL TRAVEL OUTSIDE OF THE [place] IN LAST 30 DAYS: No COUNTRY TRAVELED TO/FROM: [facility] HEENT: Pharyngeal Tenderness, Pharyngeal Erythema Notes: Positive fractured tooth #15. Positive ulcerations to left buccal surface. Positive ulcerations to lateral lingual surfaces. - NECK Neck: Supple, Lymphadenopathy-Left - Positive left anterior cervical adenopathy - RESPIRATORY Respiratory: Breath Sounds Normal, No Respiratory Distress - GI/ABDOMEN Gastrointestinal: Abdomen Soft, Abdomen Non-Tender - NEURO Level of Consciousness: Awake, Alert, Appropriate - DERM Integumentary: Warm, Dry Course - Re-evaluation Re-evalutation: 01/05/18 12:33 History and physical are consistent with a dental infection. There are no signs of sepsis or respiratory distress. Patient is able to talk and swallow without difficulty. No deep tissue infection, peritonsillar abscess, Juan Carlos's angina or epiglottitis. Home care, dental follow-up and ED return precautions discussed with patient. Patient acknowledges understanding and is agreeable with plan. Patient stable for discharge - Vital Signs Vital signs: Temp Pulse Resp BP Pulse Ox 98.4 F 80 18 133/88 H 95 01/05/18 12:05 01/05/18 12:05 01/05/18 12:05 01/05/18 12:05 01/05/18 12:05 Discharge - Discharge Clinical Impression: Dental infection Condition: Stable Disposition: HOME, SELF-CARE Instructions: Antibiotic Therapy ([facility]) Additional Instructions: Please take all antibiotics as prescribed. Use the Magic mouthwash as needed for comfort. Follow-up with dental as soon as possible for further evaluation and treatment Prescriptions: Clindamycin HCl 300 mg PO QID #40 capsule Nystatin/Dexameth/Diphen [Magic Mouthwash] 5 ml PO QID #120 ml Forms: Return to Work Referrals: ADALBERTO PATEL MD [Primary Care Provider] - Follow up as needed
== END 2018-01-05 12:45 | disposition home or self-care (01) ==
LOC: ER 12:01
DX: K04.7 Periapical abscess without sinus (principal); K14.0 Glossitis; K08.89 Other specified disorders of teeth and supporting structures; J02.9 Acute pharyngitis, unspecified; I10 Essential (primary) hypertension; F17.200 Nicotine dependence, unspecified, uncomplicated
CPT/HCPCS: 99282

== ENCOUNTER 2018-01-06 15:41 | Emergency (ER) | payer BC ==
[2018-01-06 15:59] VITALS: BP 118/76
--- NOTE | 2018-01-06 16:30 | ER Document Report ---
ED Oral Problem - General Chief Complaint: Mouth Problem Stated Complaint: TONGUE SWELLING Time Seen by Provider: 01/06/18 16:12 Notes: The patient is a 52-year-old female who presents with 2 days of worsening posterior mouth pain and sores. She was seen in the ER yesterday and started on antibiotics for a broken tooth. Patient is having pain when she tries to eat. She is able to drink with only mild pain. She denies neck stiffness, fevers or lesions on the foot or hands. TRAVEL OUTSIDE OF THE [place] IN LAST 30 DAYS: No COUNTRY TRAVELED TO/FROM: [place] - Related Data Allergies/Adverse Reactions: meloxicam [Meloxicam] Allergy (Verified 01/06/18 16:02) Penicillins Allergy (Verified 01/06/18 16:02) tetracycline [Tetracycline] Allergy (Verified 01/06/18 16:02) Past Medical History - General Information source: Patient - Social History Smoking Status: Current Every Day Smoker Chew tobacco use (# tins/day): No Frequency of alcohol use: None Drug Abuse: None Family History: Reviewed & Not Pertinent, CAD - mother Patient has suicidal ideation: No Patient has homicidal ideation: No - Past Medical History Cardiac Medical History: Reports: Hx Hypercholesterolemia, Hx Hypertension Denies: Hx Heart Attack Pulmonary Medical History: Reports: Hx Bronchitis Denies: Hx Asthma, Hx COPD, Hx Pneumonia Neurological Medical History: Denies: Hx Seizures Renal/ Medical History: Reports: Hx Ovarian Cysts - FIBROIDS, Hx Renal Insufficiency. Denies: Hx Peritoneal Dialysis GI Medical History: Reports: Hx Diverticulitis, Hx Gastroesophageal Reflux Disease Musculoskeltal Medical History: Reports Hx Arthritis Psychiatric Medical History: Reports: Hx Anxiety, Hx Bipolar Disorder, Hx Depression - anxiety, Hx Post Traumatic Stress Disorder Past Surgical History: Reports: Hx Tubal Ligation. Denies: Hx Hysterectomy - Immunizations Hx Diphtheria, Pertussis, Tetanus Vaccination: Yes - 2012 Review of Systems - Review of Systems Notes: REVIEW OF SYSTEMS: CONSTITUTIONAL: -fevers, -chills EENT: +mouth lesions, -painful swallowing, -nasal congestion GASTROINTESTINAL: -abdominal pain, -nausea, -vomiting, -diarrhea MUSCULOSKELETAL: -back pain, -neck pain SKIN: -rash or skin lesions. LYMPHATIC: -swollen, enlarged glands. NEUROLOGICAL: -altered mental status or loss of consciousness, -headache, - neurologic symptoms ALL OTHER SYSTEMS REVIEWED AND NEGATIVE. Physical Exam - Vital signs Vitals: Temp Pulse Resp BP Pulse Ox 98.4 F 77 16 118/76 94 01/06/18 15:57 01/06/18 15:57 01/06/18 15:57 01/06/18 15:57 01/06/18 15:57 - Notes Notes: PHYSICAL EXAMINATION: GENERAL: Well-appearing, well-nourished and in no acute distress. HEAD: Atraumatic, normocephalic. EYES: Pupils equal round and reactive to light, extraocular movements intact, sclera anicteric, conjunctiva are normal. ENT: Multiple vesicular lesions on palate, bilateral tonsils and tongue, poor dentition, Moist mucous membranes. NECK: Normal range of motion, supple without lymphadenopathy LUNGS: Breath sounds clear to auscultation bilaterally and equal. No wheezes rales or rhonchi. HEART: Regular rate and rhythm without murmurs SKIN: Warm, Dry, normal turgor, no rashes or lesions noted. Course - Re-evaluation Re-evalutation: Will treat her stomatitis symptoms using Magic mouthwash and instructions to stay hydrated. No airway involvement at this time. - Vital Signs Vital signs: Temp Pulse Resp BP Pulse Ox 98.4 F 77 16 118/76 94 01/06/18 15:57 01/06/18 15:57 01/06/18 15:57 01/06/18 15:57 01/06/18 15:57 Discharge - Discharge Clinical Impression: Stomatitis Condition: Stable Disposition: HOME, SELF-CARE Additional Instructions: Your symptoms are most likely caused by a viral infection in her mouth. Use the Magic mouthwash as directed and continue to stay hydrated by drinking plenty of cold fluids. Return to the ER if you are unable to drink anything or you have any worsening symptoms. Prescriptions: Nystatin/Dexameth/Diphen [Magic Mouthwash ([facility] Formula) Susp] 5 ml PO QID #120 ml Forms: Return to Work Referrals: ADALBERTO PATEL MD [Primary Care Provider] - Follow up as needed
== END 2018-01-06 16:44 | disposition home or self-care (01) ==
LOC: ER 15:41
DX: K12.1 Other forms of stomatitis (principal); K08.89 Other specified disorders of teeth and supporting structures; R22.0 Localized swelling, mass and lump, head; F17.200 Nicotine dependence, unspecified, uncomplicated; I10 Essential (primary) hypertension
CPT/HCPCS: 99282

== ENCOUNTER 2018-01-25 14:00 | Emergency (ER) | payer BC ==
[2018-01-25] MEDS: ONDANSETRON 4 MG TAB.RAPDIS PO ONE (15:42)
[2018-01-25] MEDS: MORPHINE SULFATE 10 MG/ML INJ IV ONE (15:42)
[2018-01-25 16:05] LABS: ABSOLUTE BASOPHILS # (AUTO) 0.2 10^3/uL (0.0-0.2); ABSOLUTE EOSINOPHILS # (AUTO) 0.3 10^3/uL (0.0-0.6); ABSOLUTE LYMPHOCYTES (AUTO) 4.3 10^3/uL (0.5-4.7); ABSOLUTE MONOCYTES (AUTO) 0.8 10^3/uL (0.1-1.4); ABSOLUTE NEUT (AUTO) 6.9 10^3/uL (1.7-8.2); BASOPHILS % (AUTO) 1.3 % (0-2); EOSINOPHILS % (AUTO) 2.4 % (0-6); HEMATOCRIT 44.4 % (36.0-47.0); HEMOGLOBIN 15.6 g/dL (12.0-15.5); LYMPHOCYTES % (AUTO) 34.3 % (13-45); MEAN CORPUSCULAR HEMOGLOBIN 31.4 pg (27.0-33.4); MEAN CORPUSCULAR HGB CONC 35.1 g/dL (32.0-36.0); MEAN CORPUSCULAR VOLUME 90 fl (80-97); MONOCYTES % (AUTO) 6.3 % (3-13); PLATELET COUNT 303 10^3/uL (150-450); RED BLOOD COUNT 4.95 10^6/uL (3.72-5.28); RED CELL DISTRIBUTION WIDTH 12.6 % (11.5-14.0); SEGMENTED NEUTROPHILS % (AUTO) 55.7 % (42-78); TOTAL CELLS COUNTED % (AUTO) 100 %; WHITE BLOOD COUNT 12.4 10^3/uL (4.0-10.5)
[2018-01-25 16:13] LABS: APPEARANCE,URINE SLIGHTLY-CLOUDY; BILIRUBIN,URINE NEGATIVE (NEGATIVE); COLOR,URINE YELLOW; GLUCOSE, URINE NEGATIVE (NEGATIVE); KETONES,URINE NEGATIVE (NEGATIVE); LEUKOCYTE ESTERASE,URINE NEGATIVE (NEGATIVE); NITRITE,URINE NEGATIVE (NEGATIVE); PROTEIN,URINE NEGATIVE (NEGATIVE); URINE SPECIFIC GRAVITY 1.025; UROBILINOGEN,URINE NEGATIVE mg/dL (<2.0)
--- NOTE | 2018-01-25 16:42 | ER Document Report ---
ED General - General Mode of Arrival: Ambulatory Information source: Patient TRAVEL OUTSIDE OF THE [place] IN LAST 30 DAYS: No COUNTRY TRAVELED TO/FROM: [place] <JUNIE WARD - Last Filed: 01/25/18 16:34> <FLORIJENNIFERSHABANA - Last Filed: 01/25/18 19:49> - General Chief Complaint: Lower Abdominal Pain Stated Complaint: LEFT SIDE PAIN Time Seen by Provider: 01/25/18 15:02 Notes: Patient is a 52 year old female with a history of ovarian cysts, diverticulosis , stroke presents to the emergency department complaining of lower left quadrant abdominal pain worsening last night. Patient states she has had these symptoms intermittently for the last 3 months and describes it as a sharp pain that radiates into her left ribs and left anterior thigh. Patient states since last night the pain has remained constant. She states she has taken Tylenol and Advil with no relief. Patient also complains of nausea. She denies any dysuria. Patient also mentions a right breast mass which is tender to palpation. She states she has previously had a cyst in the right breast. Of significance, patient was seen in the emergency deparmtent several times within the last 2 months complaining of different issues. Patient was admitted on November 30, 2017 for chest pain and was found to have hypertension and hyperlipidemia. Patient's PCP is Dr. Patel. (JUNIE WARD) - Related Data Allergies/Adverse Reactions: meloxicam [Meloxicam] Allergy (Verified 01/25/18 14:02) Penicillins Allergy (Verified 01/25/18 14:02) tetracycline [Tetracycline] Allergy (Verified 01/25/18 14:02) Past Medical History - General Information source: Patient - Social History Smoking Status: Current Every Day Smoker Chew tobacco use (# tins/day): No Frequency of alcohol use: Rare Drug Abuse: None Family History: Reviewed & Not Pertinent, CAD - mother Patient has suicidal ideation: No Patient has homicidal ideation: No - Past Medical History Cardiac Medical History: Reports: Hx Hypercholesterolemia, Hx Hypertension Pulmonary Medical History: Reports: Hx Bronchitis Renal/ Medical History: Reports: Hx Ovarian Cysts - FIBROIDS, Hx Renal Insufficiency GI Medical History: Reports: Hx Diverticulitis, Hx Gastroesophageal Reflux Disease Musculoskeltal Medical History: Reports Hx Arthritis Psychiatric Medical History: Reports: Hx Anxiety, Hx Bipolar Disorder, Hx Depression - anxiety, ptsd, Hx Post Traumatic Stress Disorder Past Surgical History: Reports: Hx Tubal Ligation - Immunizations Hx Diphtheria, Pertussis, Tetanus Vaccination: Yes - 2012 <[email or web address] - Last Filed: 01/25/18 16:34> Review of Systems - Review of Systems Constitutional: No symptoms reported EENT: No symptoms reported Cardiovascular: No symptoms reported Respiratory: No symptoms reported Gastrointestinal: See HPI, Nausea Genitourinary: No symptoms reported Female Genitourinary: No symptoms reported Musculoskeletal: See HPI Skin: See HPI Hematologic/Lymphatic: No symptoms reported Neurological/Psychological: No symptoms reported -: Yes All other systems reviewed and negative <JUNIE WARD - Last Filed: 01/25/18 16:34> Physical Exam <JUNIE WARD - Last Filed: 01/25/18 16:34> <SHABANA RUBY - Last Filed: 01/25/18 19:49> - Vital signs Vitals: Temp Pulse Resp BP Pulse Ox 98.2 F 59 L 16 138/83 H 97 01/25/18 14:18 01/25/18 14:18 01/25/18 14:18 01/25/18 14:18 01/25/18 14:18 - Notes Notes: GENERAL: Alert, interacts well. No acute distress. HEAD: Normocephalic, atraumatic. EYES: Pupils equal, round, and reactive to light. Extraocular movements intact. ENT: Oral mucosa moist, tongue midline. NECK: Full range of motion. Supple. Trachea midline. LUNGS:Coarse breaths sounds. Rhonchi. No respiratory distress. Right upper breast medial to midline contains a palpable fibrocystic mass which is tender palpation. Left lateral chest tender to palpation. HEART: Regular rate and rhythm. No murmurs, gallops, or rubs. ABDOMEN: Soft, LLQ and epigastrium tender to palpation. Non-distended. Bowel sounds present in all 4 quadrants. EXTREMITIES: Moves all 4 extremities spontaneously. No edema. Left inguinal region tender to palpation. Left anterior thigh tender to palpation. NEUROLOGICAL: Alert and oriented x3. Normal speech. PSYCH: Normal affect, normal mood. SKIN: Warm, dry, normal turgor. No rashes or lesions noted. (JUNIE WARD) Course - Laboratory Result Diagrams: 01/25/18 15:46 01/25/18 15:46 <JUNEI WARD - Last Filed: 01/25/18 16:34> - Laboratory Result Diagrams: 01/25/18 15:46 01/25/18 16:30 - Diagnostic Test Radiology reviewed: Image reviewed, Reports reviewed - CT scan of chest abdomen pelvis with IV contrast shows a stable right ovarian dermoid, diverticulosis without inflammation, and a right breast fluid collection, probably abscess - Consults Dr. Martinez Time consulted: 18:35 Consulted provider: will come to ER <SHABANA RUBY - Last Filed: 01/25/18 19:49> - Vital Signs Vital signs: Temp Pulse Resp BP Pulse Ox 98.2 F 59 L 16 138/83 H 97 01/25/18 14:18 01/25/18 14:18 01/25/18 14:18 01/25/18 14:18 01/25/18 14:18 - Laboratory Laboratory results interpreted by me: 01/25/18 15:46 WBC 12.4 H Hgb 15.6 H Discharge <EDMICKEYJARRED - Last Filed: 01/25/18 16:34> <SHABANA RUBY - Last Filed: 01/25/18 19:49> - Discharge Clinical Impression: Abdominal pain Qualifiers: Abdominal location: left lower quadrant Qualified Code(s): R10.32 - Left lower quadrant pain Breast cyst Qualifiers: Laterality: right Qualified Code(s): N60.01 - Solitary cyst of right breast Condition: Stable Disposition: HOME, SELF-CARE Additional Instructions: Abdominal Pain There are many causes of abdominal pain. Pain can mean a serious problem requiring surgery (such as appendicitis). It can also be an innocent problem that goes away on its own (such as a viral infection). Often, time must pass to determine the cause of pain. The physician does not feel that hospitalization is necessary, at present. Things may change within the next 24 hours. Call the doctor or come back for re- examination if any problems occur, such as: (1) Pain that becomes more severe, steady, or becomes concentrated in one specific area. Also, pain that is more severe with movement or coughing. (2) Vomiting that persists or becomes more frequent. (3) Blood in the vomitus, urine, or bowel movements. Blood in the stool may have a tarry or black appearance. (4) Shaking chills or fever greater than 100 degrees F. (5) The abdomen becomes more distended or swollen. (6) Bowel movements cease. (7) Failure to improve as expected. There were no new or acute abnormality seen in the CT scan of your abdomen and pelvis. The mass we felt on your breast and saw on CT scan turned out to be a cyst that was aspirated by the surgeon. You should follow the instructions that the surgeon gave you about avoiding smoking, caffeine, and wearing good breath support. Follow-up with [facility] after you get your mammogram done. Follow-up with your primary care provider if your abdomen and thigh pain continue. RETURN TO THE EMERGENCY ROOM IF ANY NEW OR WORSENING SYMPTOMS. Referrals: ADALBERTO PATEL MD [Primary Care Provider] - Follow up as needed [facility] [Provider Group] - Follow up as needed (Call to schedule a routine appointment after your mammogram is done.) Scribe Attestation: 01/25/18 18:21 I personally performed the services described in the documentation, reviewed and edited the documentation which was dictated to the scribe in my presence, and it accurately records my words and actions. (SHABANA RUBY) Scribe Documentation - Scribe Written by Rocio:: Rocio Chin, 01/25/2018 16:48 acting as scribe for :: Flori <JUNIE WARD - Last Filed: 01/25/18 16:34>
[2018-01-25 16:57] LABS: ALANINE AMINOTRANSFERASE 30 U/L (9-52); ALBUMIN 4.2 g/dL (3.5-5.0); ALKALINE PHOSPHATASE 56 U/L (38-126); ANION GAP 11 (5-19); ASPARTATE AMINO TRANSFERASE 22 U/L (14-36); BILIRUBIN,DIRECT 0.4 mg/dL (0.0-0.4); BILIRUBIN,TOTAL 0.5 mg/dL (0.2-1.3); BLOOD UREA NITROGEN 20 mg/dL (7-20); CALCIUM 9.7 mg/dL (8.4-10.2); CARBON DIOXIDE 26 mmol/L (22-30); CHLORIDE 106 mmol/L (98-107); GLUCOSE 93 mg/dL (75-110); POTASSIUM 4.5 mmol/L (3.6-5.0); SODIUM 142.7 mmol/L (137-145); TOTAL PROTEIN 6.9 g/dL (6.3-8.2)
[2018-01-25] MEDS: NORMAL SALINE 1000 ML 1,000 ML IV ONE (17:30)
--- NOTE | 2018-01-25 17:39 | RADIOLOGY REPORT (SQ) ---
EXAM DESCRIPTION: CT CHEST WITH COMPLETED DATE/TIME: 01/25/2018 5:24 pm REASON FOR STUDY: Tender right breast mass, left rib pain, LLQ abd p COMPARISON: 11/30/2017 TECHNIQUE: CT scan of the chest performed using helical scanning technique with dynamic intravenous contrast injection. Images reviewed with lung, soft tissue and bone windows. Reconstructed coronal and sagittal MPR images reviewed. All images stored on PACS. All CT scanners at this facility use dose modulation, iterative reconstruction, and/or weight based d osing when appropriate to reduce radiation dose to as low as reasonably achievable (ALARA). [facility]: Dose Right [facility]: CareDose [facility]: Dose Right [facility]: Teradose 4D [facility]: Oh My Glasses CONTRAST TYPE AND DOSE: 100 mL Isovue 370- low osmolar. RENAL FUNCTION: BUN 20 creatinine 0.72 RADIATION DOSE: CT Rad equipment meets quality standard of care and radiation dose reduction techniq ues were employed. CTDIvol: 14.0 - 19.4 mGy. DLP: 2042 mGy-cm. . LIMITATIONS: None. FINDINGS: LUNGS AND PLEURA: No opacities, nodules, masses. No pneumothorax. No effusions. HILAR AND MEDIASTINAL STRUCTURES: No identified masses or abnormal nodes. HEART AND VASCULAR STRUCTURES: No aneurysm or dissection. No central pulmonary emboli. No pericardi al effusion. HARDWARE: None in the chest. UPPER ABDOMEN: See separate report of the CT of the abdomen. THYROID AND OTHER SOFT TISSUES: No masses. No adenopathy. BONES: No significant finding. OTHER: Dense breast tissue. There is a 26 x 38 mm area of decreased attenuation within the breast pa renchyma on the right suggestive of fluid collection. IMPRESSION: There appears to be a fluid collection within the right breast parenchyma concerning for breast abscess or hematoma. TECHNICAL DOCUMENTATION: JOB ID: [id number] Quality ID # [id number]: Final reports with documentation of one or more dose reduction techniques (e.g., Au tomated exposure control, adjustment of the mA and/or kV according to patient size, use of iterative reconstruction technique) 2010 [employer]- All Rights Reserved Reading location - IP/workstation name: [email or web address]
--- NOTE | 2018-01-25 17:44 | RADIOLOGY REPORT (SQ) ---
EXAM DESCRIPTION: CT ABD/PELVIS WITH IV ONLY COMPLETED DATE/TIME: 01/25/2018 5:24 pm REASON FOR STUDY: LUQ and LLQ pain COMPARISON: 12/08/2016 TECHNIQUE: CT scan of the abdomen and pelvis performed using helical scanning technique with dynamic intravenous contrast injection. No oral contrast. Images reviewed with lung, soft tissue, and bone windows. Reconstructed coronal and sagittal MPR images reviewed. Delayed images for evaluation of the urinary system also acquired. All images stored on PACS. All CT scanners at this facility use dose modulation, iterative reconstruction, and/or weight based d osing when appropriate to reduce radiation dose to as low as reasonably achievable (ALARA). [facility]: Dose Right [facility]: CareDose [facility]: Dose Right [facility]: Teradose 4D [facility]: iSSimple CONTRAST TYPE AND DOSE: contrast/concentration: Isovue 370.00 mg/ml; Total Contrast Delivered: 100.0 ml; Total Saline Delivered: 40.0 ml RENAL FUNCTION: BUN 20 creatinine 0.72 RADIATION DOSE: . LIMITATIONS: None. FINDINGS: LOWER CHEST: No significant findings. No nodules or infiltrates. LIVER: Normal size. No masses. No dilated ducts. SPLEEN: Normal size. No focal lesions. PANCREAS: No masses. No significant calcifications. No adjacent inflammation or peripancreatic fluid collections. Pancreatic duct not dilated. GALLBLADDER: No identified stones by CT criteria. No inflammatory changes to suggest cholecystitis. ADRENAL GLANDS: No significant masses or asymmetry. RIGHT KIDNEY AND URETER: No solid masses. No significant calcifications. No hydronephrosis or hyd roureter. LEFT KIDNEY AND URETER: No solid masses. No significant calcifications. No hydronephrosis or hydr oureter. AORTA AND VESSELS: No aneurysm. No dissection. Renal arteries, SMA, celiac without stenosis. RETROPERITONEUM: No retroperitoneal adenopathy, hemorrhage or masses. BOWEL AND PERITONEAL CAVITY: No obvious masses. Mild descending and sigmoid diverticulosis. No acut e inflammatory changes are appreciated. APPENDIX: Normal. PELVIS: Once again there is a small fat density lesion in the right adnexa. ABDOMINAL WALL: No masses. No hernias. BONES: No significant or acute findings. OTHER: No other significant finding. IMPRESSION: 1. Diverticulosis coli. No acute inflammatory changes. 2. Stable right ovarian dermoid. TECHNICAL DOCUMENTATION: JOB ID: [id number] Quality ID # [id number]: Final reports with documentation of one or more dose reduction techniques (e.g., Au tomated exposure control, adjustment of the mA and/or kV according to patient size, use of iterative reconstruction technique) 2010 [employer]- All Rights Reserved Reading location - IP/workstation name: [email or web address]
[2018-01-25] MEDS: LIDOCAINE 1% INJ-PF (10 MG/ML) 30 ML SDV INJ ONE (18:43)
[2018-01-25 20:03] VITALS: BP 125/80
--- NOTE | 2018-01-25 20:05 | Operative Report ---
Nonrecallable Operative Report DATE OF SURGERY: 01/25/18 PREOPERATIVE DIAGNOSIS: Right breast cyst, symptomatic POSTOPERATIVE DIAGNOSIS: Same as above OPERATION: Ultrasound-guided aspiration of a right breast cyst, 12 cc volume SURGEON: CARL SCOTT ANESTHESIA: Local TISSUE REMOVED OR ALTERED: 12 cc breast cyst fluid COMPLICATIONS: None apparent ESTIMATED BLOOD LOSS: Minimal PROCEDURE: Procedure in detail: After informed consent was obtained, the right breast was examined with an ultrasound. At the 1 o'clock position, approximately 2 cm from the areola, there was a smooth-walled cystic structure. The area of the right breast was prepped and draped in a normal sterile fashion. The skin of the right upper breast was infiltrated with 1% lidocaine. Under direct ultrasonic guidance, an 18-gauge needle was inserted into the cystic structure. The cyst was aspirated, revealing approximately 12 cc of thin, greenish-brown fluid. The cyst was aspirated completely. This was confirmed with ultrasound. The needle was removed, and the procedure was concluded. All sponge, instrument, and needle counts were correct 2. Condition: Stable.
--- NOTE | 2018-01-25 20:15 | PDOC CONSULTATION ---
Consultation Consult Date: 01/25/18 Attending physician:: SHABANA RUBY Consult reason:: symptomatic right breast cyst History of Present Illness Admission Date/PCP: ADALBERTO PATEL MD History of Present Illness: MADISON ALVA is a 52 year old female seen in consultation at the request of Dr. Ruby. This is a patient with known fibrocystic disease. She has an enlarging masslike structure in the right superior breast. It is excessively painful. The patient has had "cysts" removed in the past. Patient has no history of breast cancer. She has no family history of breast cancer. The patient drinks large amounts of caffeine and smokes cigarettes every day. She denies any skin changes in the breast, fevers, chills, nausea, vomiting, chest pain, shortness of breath. She was initially seen for abdominal pain, but her large breast cyst was discovered on CT scan. I was consulted for evaluation. Past Medical History Cardiac Medical History: Reports: Hyperlipidema, Hypertension Denies: Myocardial Infarction Pulmonary Medical History: Reports: Bronchitis Denies: Asthma, Chronic Obstructive Pulmonary Disease (COPD), Pneumonia Neurological Medical History: Denies: Seizures GI Medical History: Reports: Diverticulitis, Gastroesophageal Reflux Disease Musculoskeltal Medical History: Reports: Arthritis Psychiatric Medical History: Reports: Bipolar Disorder, Depression - anxiety, ptsd, Post Traumatic Stress Disorder Hematology: Reports: Anemia - with Past Surgical History Past Surgical History: Reports: Tubal Ligation, Other - Right breast cyst excision Denies: Hysterectomy Social History Smoking Status: Current Every Day Smoker Cigarettes Packs Per Day: 0.5 Frequency of Alcohol Use: None Hx Recreational Drug Use: No Drugs: None Hx Prescription Drug Abuse: No Family History Family History: Reviewed & Not Pertinent, CAD - mother Parental Family History Reviewed: Yes Children Family History Reviewed: Yes Sibling(s) Family History Reviewed.: Yes Medication/Allergy Home Medications: Citalopram Hydrobromide [Celexa 10 mg Tablet] 10 mg PO DAILY 12/01/17 Lisinopril [Zestril] 10 mg PO DAILY #30 12/01/17 Metoprolol Tartrate [Lopressor 25 mg Tablet] 25 mg PO BID #60 tab 12/01/17 [place]-3 Fatty Acids/Fish Oil [[place] 3 Fish Oil Softgel] 1 each PO BID 30 Days # 60 capsule. 12/01/17 Pravastatin Sodium [Pravachol] 40 mg PO QHS 12/01/17 Clindamycin HCl 300 mg PO QID #40 capsule 01/05/18 Nystatin/Dexameth/Diphen [Magic Mouthwash] 5 ml PO QID #120 ml 01/05/18 Nystatin/Dexameth/Diphen [Magic Mouthwash (Omh Formula) Susp] 5 ml PO QID #120 ml 01/06/18 Allergies/Adverse Reactions: meloxicam [Meloxicam] Allergy (Verified 01/25/18 14:02) Penicillins Allergy (Verified 01/25/18 14:02) tetracycline [Tetracycline] Allergy (Verified 01/25/18 14:02) Review of Systems Constitutional: ABSENT: anorexia, chills, fatigue, fever(s), night sweats Eyes: ABSENT: visual disturbances Ears: ABSENT: hearing changes Nose, Mouth, and Throat: ABSENT: sore throat Cardiovascular: ABSENT: chest pain, dyspnea on exertion Respiratory: ABSENT: cough, hemoptysis Gastrointestinal: PRESENT: abdominal pain, bloating, heartburn. ABSENT: coffee ground emesis Genitourinary: PRESENT: dysuria Musculoskeletal: ABSENT: joint swelling Integumentary: PRESENT: other - Fibrocystic disease of the breast. Enlarging right breast mass-like lesion that is tender. ABSENT: pruritus, rash Neurological: ABSENT: abnormal movements, abnormal speech, paresthesias Psychiatric: ABSENT: hallucinations Endocrine: ABSENT: cold intolerance, heat intolerance Hematologic/Lymphatic: ABSENT: easy bleeding, easy bruising Physical Exam Vital Signs: Temp Pulse Resp BP Pulse Ox 98.2 F 59 L 16 138/83 H 97 01/25/18 14:18 01/25/18 14:18 01/25/18 14:18 01/25/18 14:18 01/25/18 14:18 Intake & Output 01/24/18 01/25/18 01/26/18 06:59 06:59 06:59 Weight 93.2 kg General appearance: PRESENT: no acute distress, cooperative Head exam: PRESENT: atraumatic, normocephalic Eye exam: PRESENT: EOMI, PERRLA. ABSENT: scleral icterus Mouth exam: PRESENT: neck supple Teeth exam: ABSENT: poor dentation Neck exam: ABSENT: lymphadenopathy, meningismus, tenderness, thyromegaly, tracheal deviation Respiratory exam: PRESENT: clear to auscultation bridgett. ABSENT: chest wall tenderness Cardiovascular exam: PRESENT: RRR Pulses: PRESENT: normal radial pulses Vascular exam: PRESENT: normal capillary refill. ABSENT: pallor GI/Abdominal exam: PRESENT: soft. ABSENT: distended, firm, guarding, rebound, rigid, tenderness Rectal exam: PRESENT: deferred Extremities exam: ABSENT: clubbing, pedal edema Neurological exam: PRESENT: alert, awake, oriented to person, oriented to place , oriented to time, oriented to situation, CN II-XII grossly intact. ABSENT: motor sensory deficit Psychiatric exam: ABSENT: agitated, anxious, depressed, flat affect Skin exam: ABSENT: cyanosis, erythema, jaundice Additional comments: Right breast with approximately 5 cm tense, tender lesion at the 1 o'clock position. Results Laboratory Results: 01/25/18 15:46 01/25/18 16:30 01/25/18 01/25/18 01/25/18 15:46 15:46 15:46 WBC 12.4 H RBC 4.95 Hgb 15.6 H Hct 44.4 MCV 90 MCH 31.4 MCHC 35.1 RDW 12.6 Plt Count 303 Seg Neutrophils % 55.7 Lymphocytes % 34.3 Monocytes % 6.3 Eosinophils % 2.4 Basophils % 1.3 Absolute Neutrophils 6.9 Absolute Lymphocytes 4.3 Absolute Monocytes 0.8 Absolute Eosinophils 0.3 Absolute Basophils 0.2 Sodium Cancelled Potassium Cancelled Chloride Cancelled Carbon Dioxide Cancelled Anion Gap Cancelled BUN Cancelled Creatinine Cancelled Est GFR ( Amer) Cancelled Est GFR (Non-Af Amer) Cancelled Glucose Cancelled Calcium Cancelled Total Bilirubin Cancelled AST Cancelled ALT Cancelled Alkaline Phosphatase Cancelled Total Protein Cancelled Albumin Cancelled Urine Color YELLOW Urine Appearance SLIGHTLY-CLOUDY Urine pH 5.0 Ur Specific [place] 1.025 Urine Protein NEGATIVE Urine Glucose (UA) NEGATIVE Urine Ketones NEGATIVE Urine Blood NEGATIVE Urine Nitrite NEGATIVE Ur Leukocyte Esterase NEGATIVE Urine WBC (Auto) 1 Urine RBC (Auto) 2 01/25/18 16:30 WBC RBC Hgb Hct MCV MCH MCHC RDW Plt Count Seg Neutrophils % Lymphocytes % Monocytes % Eosinophils % Basophils % Absolute Neutrophils Absolute Lymphocytes Absolute Monocytes Absolute Eosinophils Absolute Basophils Sodium 142.7 Potassium 4.5 Chloride 106 Carbon Dioxide 26 Anion Gap 11 BUN 20 Creatinine 0.72 Est GFR ( Amer) > 60 Est GFR (Non-Af Amer) > 60 Glucose 93 Calcium 9.7 Total Bilirubin 0.5 AST 22 ALT 30 Alkaline Phosphatase 56 Total Protein 6.9 Albumin 4.2 Urine Color Urine Appearance Urine pH Ur Specific [place] Urine Protein Urine Glucose (UA) Urine Ketones Urine Blood Urine Nitrite Ur Leukocyte Esterase Urine WBC (Auto) Urine RBC (Auto) Impressions: Abdomen/Pelvis CT 01/25/18 15:07 IMPRESSION: 1. Diverticulosis coli. No acute inflammatory changes. 2. Stable right ovarian dermoid. Chest CT 01/25/18 16:35 IMPRESSION: There appears to be a fluid collection within the right breast parenchyma concerning for breast abscess or hematoma. Assessment & Plan - Diagnosis (1) Fibrocystic disease of both breasts Is this a current diagnosis for this admission?: Yes - Plan Summary Plan Summary: This is a 52-year-old female with fibrocystic disease of the breast. He has an enlarging, symptomatic right breast cyst. It measures approximately 5 cm in total diameter. I have offered the patient aspiration for both symptom relief and cytologic examination. The patient has agreed to this. Risks/benefits discussed, informed consent obtained, and all questions answered. The patient has not had a mammogram in over 4 years. I have ordered a bilateral screening mammogram for the patient. I have encouraged her to follow- up with me in the office for the results.
== END 2018-01-25 20:03 | disposition home or self-care (01) ==
LOC: ER 14:00
DX: N60.11 Diffuse cystic mastopathy of right breast (principal); N60.12 Diffuse cystic mastopathy of left breast; D27.0 Benign neoplasm of right ovary; K57.30 Diverticulosis of large intestine without perforation or abscess without bleeding; R10.32 Left lower quadrant pain; R10.816 Epigastric abdominal tenderness; R10.814 Left lower quadrant abdominal tenderness; R09.89 Other specified symptoms and signs involving the circulatory and respiratory systems; R11.0 Nausea; I10 Essential (primary) hypertension; F17.210 Nicotine dependence, cigarettes, uncomplicated; F32.9 Major depressive disorder, single episode, unspecified; F41.9 Anxiety disorder, unspecified; Z79.899 Other long term (current) drug therapy; Z88.0 Allergy status to penicillin; Z88.8 Allergy status to other drugs, medicaments and biological substances; Z88.1 Allergy status to other antibiotic agents
CPT/HCPCS: 99285; 96361; 96374; 36415; 87070; 87205; 85025; 87075; 80053; 81001; 88162; 71260; 74177; 19000; 76942; S0119; J3490; J2270; J7030

== ENCOUNTER 2018-06-21 19:55 | Emergency (ER) | payer SELFPAY ==
[2018-06-21] MEDS ORDERED: NORMAL SALINE 1000 ML 1,000 ML IV ONE (21:04)
[2018-06-21] MEDS ORDERED: ONDANSETRON HCL INJ/PF 4 MG/2 ML SDV IV ONE (21:04)
[2018-06-21 22:15] LABS: ABSOLUTE BASOPHILS # (AUTO) 0.1 10^3/uL (0.0-0.2); ABSOLUTE EOSINOPHILS # (AUTO) 0.3 10^3/uL (0.0-0.6); ABSOLUTE LYMPHOCYTES (AUTO) 5.3 10^3/uL (0.5-4.7); ABSOLUTE MONOCYTES (AUTO) 0.9 10^3/uL (0.1-1.4); BASOPHILS % (AUTO) 1.1 % (0-2); EOSINOPHILS % (AUTO) 2.2 % (0-6); HEMATOCRIT 45.6 % (36.0-47.0); HEMOGLOBIN 15.6 g/dL (12.0-15.5); LYMPHOCYTES % (AUTO) 38.9 % (13-45); MEAN CORPUSCULAR HEMOGLOBIN 30.6 pg (27.0-33.4); MEAN CORPUSCULAR HGB CONC 34.2 g/dL (32.0-36.0); MEAN CORPUSCULAR VOLUME 90 fl (80-97); MONOCYTES % (AUTO) 6.8 % (3-13); PLATELET COUNT 329 10^3/uL (150-450); RED CELL DISTRIBUTION WIDTH 13.1 % (11.5-14.0); TOTAL CELLS COUNTED % (AUTO) 100 %; WHITE BLOOD COUNT 13.7 10^3/uL (4.0-10.5)
[2018-06-21 22:27] LABS: APPEARANCE,URINE SLIGHTLY-CLOUDY; BILIRUBIN,URINE NEGATIVE (NEGATIVE); COLOR,URINE YELLOW; GLUCOSE, URINE NEGATIVE (NEGATIVE); KETONES,URINE NEGATIVE (NEGATIVE); LEUKOCYTE ESTERASE,URINE NEGATIVE (NEGATIVE); NITRITE,URINE NEGATIVE (NEGATIVE); PROTEIN,URINE NEGATIVE (NEGATIVE); URINE SPECIFIC GRAVITY 1.025; UROBILINOGEN,URINE NEGATIVE mg/dL (<2.0)
[2018-06-21 22:33] LABS: ALANINE AMINOTRANSFERASE 29 U/L (9-52); ALBUMIN 4.9 g/dL (3.5-5.0); ALKALINE PHOSPHATASE 76 U/L (38-126); ANION GAP 14 (5-19); ASPARTATE AMINO TRANSFERASE 28 U/L (14-36); BILIRUBIN,DIRECT 0.2 mg/dL (0.0-0.4); BILIRUBIN,TOTAL 0.5 mg/dL (0.2-1.3); BLOOD UREA NITROGEN 16 mg/dL (7-20); CALCIUM 9.8 mg/dL (8.4-10.2); CARBON DIOXIDE 25 mmol/L (22-30); CHLORIDE 105 mmol/L (98-107); GLUCOSE 105 mg/dL (75-110); SODIUM 143.5 mmol/L (137-145); TOTAL PROTEIN 8.3 g/dL (6.3-8.2)
--- NOTE | 2018-06-21 22:45 | ER Document Report ---
ED General - General Chief Complaint: Flu Symptoms Stated Complaint: PAIN IN ARMS,HANDS,FEET LEGS, TONGUE SWELLING Time Seen by Provider: 06/21/18 22:31 Notes: Patient is a 52-year-old female presents with complaint of a month worth of burning of her tongue, sensation that her tongue was swollen, burning and tingling sensation into her arms and hands, sensation to her arms and hands are swollen. She says that she is also had this in the past. She is a history neuropathy. She used to see Dr. Montano for this. When asked about history of vitamin B12 deficiency Brandie says "I remember Dr. Montano give me B12 shots in the past". She lost her insurance and therefore has not been will see him in a while. She is running in the [facility]. The only medication he takes currently is Lopressor. Previous medications that she took in the past include lisinopril and a statin medication for cholesterol. She denies any chest pain. Shortness of breath except for at night she says she will occasionally wake up gasping for breath; however, she is supposed to be on a CPAP machine. She said she left her house this to her CPAP machine at a friend's house in [place] and therefore has not been using her CPAP machine. TRAVEL OUTSIDE OF THE [place] IN LAST 30 DAYS: No COUNTRY TRAVELED TO/FROM: [place] - Related Data Allergies/Adverse Reactions: meloxicam [Meloxicam] Allergy (Verified 01/25/18 14:02) Penicillins Allergy (Verified 01/25/18 14:02) tetracycline [Tetracycline] Allergy (Verified 01/25/18 14:02) Past Medical History - Social History Smoking Status: Current Every Day Smoker Frequency of alcohol use: None Drug Abuse: None Family History: Reviewed & Not Pertinent, CAD - mother Patient has suicidal ideation: No Patient has homicidal ideation: No - Past Medical History Cardiac Medical History: Reports: Hx Hypercholesterolemia, Hx Hypertension Denies: Hx Heart Attack Pulmonary Medical History: Reports: Hx Bronchitis Denies: Hx Asthma, Hx COPD, Hx Pneumonia Neurological Medical History: Denies: Hx Seizures Endocrine Medical History: Comment Only: Hx Diabetes Mellitus Type 2 - pre- diabetic, monitors sugars Renal/ Medical History: Reports: Hx Ovarian Cysts - FIBROIDS, Hx Renal Insufficiency. Denies: Hx Peritoneal Dialysis GI Medical History: Reports: Hx Diverticulitis, Hx Gastroesophageal Reflux Disease Musculoskeletal Medical History: Reports Hx Arthritis Psychiatric Medical History: Reports: Hx Anxiety, Hx Bipolar Disorder, Hx Depression - anxiety, ptsd, Hx Post Traumatic Stress Disorder Past Surgical History: Reports: Hx Tubal Ligation, Other - Right breast cyst excision. Denies: Hx Hysterectomy - Immunizations Hx Diphtheria, Pertussis, Tetanus Vaccination: Yes - 2012 Review of Systems - Review of Systems Notes: My Normal Review Basic REVIEW OF SYSTEMS: CONSTITUTIONAL : Denies fever, chills, or sweats. Denies recent illness. EENT: Sensation of tongue swelling. CARDIOVASCULAR: Denies chest pain. RESPIRATORY: Cough GASTROINTESTINAL: Denies abdominal pain. Denies nausea, vomiting, or diarrhea. GENITOURINARY: Denies difficulty urinating, painful urination, burning, frequency, or blood in urine. FEMALE GENITOURINARY: Denies vaginal bleeding, abnormal or irregular periods. LMP: MUSCULOSKELETAL: Denies neck or back pain or joint pain or swelling. SKIN: Denies rash or skin lesions. NEUROLOGICAL: Denies altered mental status or loss of consciousness. Denies headache. Denies weakness or paralysis or loss of use of either side. Denies problems with gait or speech. Denies sensory or motor loss. Burning sensation into hands feet and tongue. PSYCHIATRIC: Denies anxiety or stress or depression. ALL OTHER SYSTEMS REVIEWED AND NEGATIVE. Physical Exam - Vital signs Vitals: Temp Pulse Resp BP Pulse Ox 98.4 F 70 20 141/86 H 97 06/21/18 20:06 06/21/18 20:06 06/21/18 20:06 06/21/18 20:06 06/21/18 20:06 - Notes Notes: General Appearance: Well nourished, alert, cooperative, no acute distress, no obvious discomfort. Well-appearing. Vitals: reviewed, See vital signs table. Head: no swelling or tenderness to the head Eyes: PERRL, EOMI, Conjuctiva clear Mouth: No decreasd moisture. I do not appreciate any tongue swelling on exam. No redness or inflammation to the mouth or throat. Throat: No tonsillar inflammation, No airway obstruction, No lymphadenopathy Neck: Supple, no neck tenderness, No thyromegaly Lungs: No wheezing, No rales, No rhonci, No accessory muscle use, good air exchange bilaterally. Heart: Normal rate, Regular rythm, No murmur, no rub Abdomen: Normal BS, soft, No rigidity, No abdominal tenderness, No guarding, no rebound, no abdominal masses, no organomegaly Extremities: strength 5/5 in all extremities, good pulses in all extremities, no swelling or tenderness in the extremities, no edema. Skin: warm, dry, appropriate color, no rash Neuro: speech clear, oriented x 3, normal affect, responds appropriately to questions. No nerves II through XII are intact. Distal sensation intact. Patient moves all extremities without difficulty. Course - Re-evaluation Re-evalutation: 06/22/18 05:58 Exact cause of the patient's paresthesias is not clear. View of her history she does mention that she has a history of chronic neuropathy and is to be on Lyrica. This was when she was followed by the neurologist, Dr. Montano. Patient will be placed back on Lyrica as this helped her in the past. She does not have any evidence of B12 or folate deficiency her labs. Thyroid function is normal. Feel she safe to be discharged home. I encouraged her return to ER if she has worsening of her symptoms or feels unwell. Patient agrees with plan and will be discharged home. Dictation of this chart was performed using voice recognition software; therefore, there may be some unintended grammatical errors. - Vital Signs Vital signs: Temp Pulse Resp BP Pulse Ox 97.5 F 64 16 130/84 H 95 06/21/18 23:35 06/21/18 23:35 06/21/18 23:35 06/21/18 23:35 06/21/18 23:35 - Laboratory Result Diagrams: 06/21/18 21:51 06/21/18 21:51 Laboratory results interpreted by me: 06/21/18 06/21/18 21:51 21:51 WBC 13.7 H Hgb 15.6 H Absolute Lymphocytes 5.3 H Total Protein 8.3 H Discharge - Discharge Clinical Impression: Neuropathy Fatigue Qualifiers: Fatigue type: unspecified Qualified Code(s): R53.83 - Other fatigue Condition: Good Disposition: HOME, SELF-CARE Additional Instructions: The exact cause of your pain in your extremities and burning in your tongue is not 100% clear at this time. We will place you back on Lyrica being that this helped you some in the past. We have started you on a low beginning dose and this may need to be increased in a week or two Please try to follow up with a primary care physician 1-2 weeks for reevaluation. please take your sleep apnea machine to a medical supply store to see if they can clean it for you and start using it again. please return to the ER if you have worsening of your symptoms, fevers, or have any further concerns. Prescriptions: Pregabalin [Lyrica 50 Mg Capsule] 50 mg PO BID #30 capsule
--- NOTE | 2018-06-21 23:14 | RADIOLOGY REPORT (SQ) ---
PROCEDURE: CHEST X-RAY TWO VIEWS CLINICAL HISTORY: cough INDICATION: Same as above COMPARISON: 11/30/2017 -chest x-ray and 01/25/2018-CT of the chest TECHNIQUE: The study was done on 06/21/2018 at 10:53 PM PA and and lateral chest radiographs were obtained. FINDINGS: There is presence of a subtle parenchymal opacity in the right lung base, in the expected location of the right middle lobe of the lung. Follow-up to resolution of this finding is suggested There are no pneumothoraces or pleural effusions. The pulmonary vascularity is normal The cardiomediastinal silhouette is unremarkable for patient's age and sex. IMPRESSION: There is presence of a subtle parenchymal opacity in the right lung base, in the expected location of the right middle lobe of the lung. Follow-up to resolution of this finding is suggested
[2018-06-21 23:19] LABS: FREE T4 (FREE THYROXINE) 1.1 ng/dL (0.78-2.19)
[2018-06-21 23:32] LABS: THYROID STIMULATING HORMONE 2.05 uIU/mL (0.47-4.68)
[2018-06-21 23:35] VITALS: BP 130/84
[2018-06-22 00:09] LABS: FOLATE 11.2 ng/mL (>2.76)
== END 2018-06-22 00:25 | disposition home or self-care (01) ==
LOC: ER 19:55
DX: G62.9 Polyneuropathy, unspecified (principal); T42.6X6A Underdosing of other antiepileptic and sedative-hypnotic drugs, initial encounter; Z91.120 Patient's intentional underdosing of medication regimen due to financial hardship; Z91.14 Patient's other noncompliance with medication regimen; I10 Essential (primary) hypertension; R53.83 Other fatigue; R05 Cough; Z91.19 Patient's noncompliance with other medical treatment and regimen; F17.200 Nicotine dependence, unspecified, uncomplicated; Z79.899 Other long term (current) drug therapy; Z88.8 Allergy status to other drugs, medicaments and biological substances; Z88.0 Allergy status to penicillin; Z88.1 Allergy status to other antibiotic agents
CPT/HCPCS: 99284; 96374; 36415; 84439; 82607; 82746; 84443; 85025; 80053; 81001; 71046; J2405; J7030

== ENCOUNTER 2018-10-20 09:48 | Emergency (ER) | payer BC ==
--- NOTE | 2018-10-20 10:27 | ER Document Report ---
ED Medical Screen (RME) - General Chief Complaint: Chest Pain Stated Complaint: ABDOMINAL PAIN Time Seen by Provider: 10/20/18 10:19 Mode of Arrival: Ambulatory Information source: Patient Notes: Patient is a 53-year-old female who presents to the emergency department with one-week history of abdominal pain and cramping. Patient reports it started out as a low abdominal cramping that felt like menstrual cramps however she has not had a period many years. Patient reports the pain is now located in the right flank area, right lower quadrant and is severe, sharp and stabbing. Patient als o reports intermittent severe nausea but has not had any vomiting or diarrhea. Patient reports normal bowel movement yesterday. Patient denies any fever. Patient does have a history of kidney stones and ovarian cysts, states this does not feel similar to those. Exam: Lung sounds clear to auscultation bilaterally. No CVA tenderness. I have greeted and performed a rapid initial assessment of this patient. A comprehensive ED assessment and evaluation of the patient, analysis of test results and completion of the medical decision making process will be conducted by additional ED providers. Dictation of this chart was performed using voice recognition software; therefore, there may be some unintended grammatical errors. TRAVEL OUTSIDE OF THE [place] IN LAST 30 DAYS: No COUNTRY TRAVELED TO/FROM: [place] - Related Data Allergies/Adverse Reactions: meloxicam [Meloxicam] Allergy (Verified 10/20/18 09:49) Penicillins Allergy (Verified 10/20/18 09:49) tetracycline [Tetracycline] Allergy (Verified 10/20/18 09:49) Past Medical History - Social History Frequency of alcohol use: None Drug Abuse: None - Past Medical History Cardiac Medical History: Reports: Hx Hypercholesterolemia, Hx Hypertension Denies: Hx Heart Attack Pulmonary Medical History: Reports: Hx Bronchitis Denies: Hx Asthma, Hx COPD, Hx Pneumonia Neurological Medical History: Denies: Hx Seizures Endocrine Medical History: Comment Only: Hx Diabetes Mellitus Type 2 - pre- diabetic, monitors sugars Renal/ Medical History: Reports: Hx Ovarian Cysts - FIBROIDS, Hx Renal Insufficiency. Denies: Hx Peritoneal Dialysis GI Medical History: Reports: Hx Diverticulitis, Hx Gastroesophageal Reflux Disease Musculoskeltal Medical History: Reports Hx Arthritis Psychiatric Medical History: Reports: Hx Anxiety, Hx Bipolar Disorder, Hx Depression - anxiety, ptsd, Hx Post Traumatic Stress Disorder Past Surgical History: Reports: Hx Tubal Ligation, Other - Right breast cyst excision. Denies: Hx Hysterectomy - Immunizations Hx Diphtheria, Pertussis, Tetanus Vaccination: Yes - 2012 History of Influenza Vaccine for 04/2017 - 09/2017 Season: No Physical Exam - Vital signs Vitals: Temp Pulse Resp BP Pulse Ox 98.0 F 72 17 140/98 H 96 10/20/18 10:11 10/20/18 10:11 10/20/18 10:11 10/20/18 10:11 10/20/18 10:11 Course - Vital Signs Vital signs: Temp Pulse Resp BP Pulse Ox 98.0 F 72 17 140/98 H 96 10/20/18 10:11 10/20/18 10:11 10/20/18 10:11 10/20/18 10:11 10/20/18 10:11
[2018-10-20 11:10] LABS: ABSOLUTE BASOPHILS # (AUTO) 0.1 10^3/uL (0.0-0.2); ABSOLUTE EOSINOPHILS # (AUTO) 0.3 10^3/uL (0.0-0.6); ABSOLUTE LYMPHOCYTES (AUTO) 3.5 10^3/uL (0.5-4.7); ABSOLUTE MONOCYTES (AUTO) 0.7 10^3/uL (0.1-1.4); ABSOLUTE NEUT (AUTO) 5.9 10^3/uL (1.7-8.2); BASOPHILS % (AUTO) 0.8 % (0-2); EOSINOPHILS % (AUTO) 2.7 % (0-6); HEMATOCRIT 43.3 % (36.0-47.0); HEMOGLOBIN 15.1 g/dL (12.0-15.5); LYMPHOCYTES % (AUTO) 33.5 % (13-45); MEAN CORPUSCULAR HGB CONC 34.8 g/dL (32.0-36.0); MEAN CORPUSCULAR VOLUME 89 fl (80-97); PLATELET COUNT 311 10^3/uL (150-450); RED BLOOD COUNT 4.86 10^6/uL (3.72-5.28); RED CELL DISTRIBUTION WIDTH 13.2 % (11.5-14.0); TOTAL CELLS COUNTED % (AUTO) 100 %; WHITE BLOOD COUNT 10.5 10^3/uL (4.0-10.5)
[2018-10-20 11:17] LABS: APPEARANCE,URINE SLIGHTLY-CLOUDY; BILIRUBIN,URINE NEGATIVE (NEGATIVE); COLOR,URINE YELLOW; GLUCOSE, URINE NEGATIVE (NEGATIVE); KETONES,URINE NEGATIVE (NEGATIVE); LEUKOCYTE ESTERASE,URINE NEGATIVE (NEGATIVE); NITRITE,URINE NEGATIVE (NEGATIVE); PROTEIN,URINE NEGATIVE (NEGATIVE); URINE SPECIFIC GRAVITY 1.021
--- NOTE | 2018-10-20 12:19 | EKG REPORT ---
SEVERITY:- BORDERLINE ECG - SINUS RHYTHM PROBABLE LEFT ATRIAL ABNORMALITY : Confirmed by: Willie Vela MD 20-Oct-2018 12:18:31
[2018-10-20 13:01] LABS: ALANINE AMINOTRANSFERASE 31 U/L (9-52); ALBUMIN 4.1 g/dL (3.5-5.0); ALKALINE PHOSPHATASE 60 U/L (38-126); ANION GAP 5 (5-19); ASPARTATE AMINO TRANSFERASE 23 U/L (14-36); BILIRUBIN,DIRECT 0.3 mg/dL (0.0-0.4); BILIRUBIN,TOTAL 0.4 mg/dL (0.2-1.3); BLOOD UREA NITROGEN 15 mg/dL (7-20); CALCIUM 9.9 mg/dL (8.4-10.2); CARBON DIOXIDE 28 mmol/L (22-30); CHLORIDE 106 mmol/L (98-107); GLUCOSE 104 mg/dL (75-110); POTASSIUM 4.5 mmol/L (3.6-5.0); SODIUM 139.3 mmol/L (137-145); TOTAL PROTEIN 6.9 g/dL (6.3-8.2)
[2018-10-20] MEDS ORDERED: FENTANYL CITRATE INJ/PF 100 MCG/2 ML AMPUL IV ONE (13:43)
--- NOTE | 2018-10-20 13:44 | ER Document Report ---
ED General - General Chief Complaint: Chest Pain Stated Complaint: ABDOMINAL PAIN Time Seen by Provider: 10/20/18 10:19 Primary Care Provider: ADALBERTO PATEL MD [Primary Care Provider] - Follow up as needed Mode of Arrival: Ambulatory Notes: 53-year-old lady presents with pain in her abdomentriage is chest pain but she does not have chest pain. She describes pain in her right flank radiating to the right lower quadrant for a couple of days worse when she moves her leg, causing some nausea and anorexia. No fever. She feels crampy "like I am going to have a." But is menopausal and is not had any issues with her uterus or ovaries recently. She denies urinary symptoms. She denies rash consistent with shingles. She denies a history of kidney stones. TRAVEL OUTSIDE OF THE [place] IN LAST 30 DAYS: No COUNTRY TRAVELED TO/FROM: [place] - Related Data Allergies/Adverse Reactions: meloxicam [Meloxicam] Allergy (Verified 10/20/18 09:49) Penicillins Allergy (Verified 10/20/18 09:49) tetracycline [Tetracycline] Allergy (Verified 10/20/18 09:49) Past Medical History - General Information source: Patient - Social History Smoking Status: Current Every Day Smoker Smoking Education Provided: Yes - The patient ED visit today was directly related to their abuse of tobacco. Frequency of alcohol use: None Drug Abuse: None Family History: Reviewed & Not Pertinent, CAD - mother Patient has suicidal ideation: No Patient has homicidal ideation: No - Past Medical History Cardiac Medical History: Reports: Hx Hypercholesterolemia, Hx Hypertension Denies: Hx Heart Attack Pulmonary Medical History: Reports: Hx Bronchitis Denies: Hx Asthma, Hx COPD, Hx Pneumonia Neurological Medical History: Denies: Hx Seizures Endocrine Medical History: Comment Only: Hx Diabetes Mellitus Type 2 - pre- diabetic, monitors sugars Renal/ Medical History: Reports: Hx Ovarian Cysts - FIBROIDS, Hx Renal Insuff iciency. Denies: Hx Peritoneal Dialysis GI Medical History: Reports: Hx Diverticulitis, Hx Gastroesophageal Reflux Disease Musculoskeletal Medical History: Reports Hx Arthritis Psychiatric Medical History: Reports: Hx Anxiety, Hx Bipolar Disorder, Hx Depression - anxiety, ptsd, Hx Post Traumatic Stress Disorder Past Surgical History: Reports: Hx Tubal Ligation, Other - Right breast cyst excision. Denies: Hx Hysterectomy - Immunizations Hx Diphtheria, Pertussis, Tetanus Vaccination: Yes - 2013 Review of Systems - Review of Systems Notes: REVIEW OF SYSTEMS GEN: Denies fever, chills, weight loss ENT: Denies sore throat, nasal discharge, ear pain EYES: Denies blurry vision, eye pain, discharge CV: Denies chest pain, palpitations, edema RESP: Denies change in chronic cough, shortness of breath, wheezing. Every day smoker. GI: Right lower abdominal pain anorexia MSK: Denies joint pain/swelling, edema, SKIN: Denies rash, skin lesions LYMPH: Denies swollen glands/lymph nodes NEURO: Denies headache, focal weakness or numbness, dizziness PSYCH: Denies depression, suicidal or homicidal ideation PHYSICAL EXAMINATION General: No acute distress, well-nourished Head: Atraumatic, normocephalic ENT: Mouth normal, oropharynx moist, no exudates or tonsillar enlargement Eyes: Conjunctiva normal, pupils equal, lids normal Neck: No JVD, supple, no guarding CVS: Normal rate, regular rhythm, no murmurs Resp: No resp distress, equal and normal breath sounds bilaterally GI: Nondistended, soft, the right lower quadrant tenderness to palpation, no rebound or guarding Ext: No deformities, no edema, normal range of motion in upper and lower ext Back: No CVA or midline TTP Skin: No rash, warm Lymphatic: No lymphadeopathy noted Neuro: Awake, alert. Face symmetric. GCS 15. Physical Exam - Vital signs Vitals: Temp Pulse Resp BP Pulse Ox 98.0 F 72 17 140/98 H 96 10/20/18 10:11 10/20/18 10:11 10/20/18 10:11 10/20/18 10:11 10/20/18 10:11 Course - Re-evaluation Re-evalutation: 10/20/18 14:35 53-year-old lady presents with right lower abdominal and flank pain concerning for appendicitis versus stone versus pyonephritis. She does not have chest pain. She is incidentally a little bit hypoxic, but is an every day smoker and has some cough. Will do chest x-ray EKG ACS workup, and CT for appendicitis. - Vital Signs Vital signs: Temp Pulse Resp BP Pulse Ox 98.0 F 72 13 123/82 96 10/20/18 10:11 10/20/18 10:11 10/20/18 15:00 10/20/18 15:00 10/20/18 15:00 - Laboratory Result Diagrams: 10/20/18 10:50 10/20/18 12:20 Laboratory results interpreted by me: 10/20/18 10:50 Urine Urobilinogen 2.0 H - Diagnostic Test Radiology reviewed: Image reviewed, Reports reviewed - EKG Interpretation by Me EKG shows normal: Sinus rhythm Rate: Normal Rhythm: NSR When compared to previous EKG there are: Previous EKG unavailable - ST or T wave changes acutely Discharge - Discharge Clinical Impression: Abdominal pain Qualifiers: Abdominal location: lower abdomen, unspecified Qualified Code(s): R10.30 - Lower abdominal pain, unspecified Condition: Good Disposition: HOME, SELF-CARE Instructions: Abdominal Pain ([facility]) Additional Instructions: We had done lab testing, urine testing, CT imaging and a surgical consult. We did not find a dangerous cause of your abdominal pain and I would like you to follow-up with your regular doctor. Referrals: ADALBERTO PATEL MD [Primary Care Provider] - Follow up as needed
--- NOTE | 2018-10-20 14:54 | RADIOLOGY REPORT (SQ) ---
EXAM DESCRIPTION: CT ABD/PELVIS WITH IV ONLY COMPLETED DATE/TIME: 10/20/2018 2:41 pm REASON FOR STUDY: Lower quadrant pain and tenderness rule out append COMPARISON: 01/25/2018 and 12/08/2016. TECHNIQUE: CT scan of the abdomen and pelvis performed using helical scanning technique with dynamic intravenous contrast injection. No oral contrast. Images reviewed with lung, soft tissue, and bone windows. Reconstructed coronal and sagittal MPR images reviewed. Delayed images for evaluation of the urinary system also acquired. All images stored on PACS. All CT scanners at this facility use dose modulation, iterative reconstruction, and/or weight based d osing when appropriate to reduce radiation dose to as low as reasonably achievable (ALARA). [facility]: Dose Right [facility]: CareDose [facility]: Dose Right [facility]: Teradose 4D [facility]: SpineGuard CONTRAST TYPE AND DOSE: contrast/concentration: Isovue 350.00 mg/ml; Total Contrast Delivered: 100.0 ml; Total Saline Delivered: 72.0 ml RENAL FUNCTION: BUN 15 creatinine 0.66. RADIATION DOSE: CT Rad equipment meets quality standard of care and radiation dose reduction techniq ues were employed. CTDIvol: 18.0 - 20.9 mGy. DLP: 2005 mGy-cm.. LIMITATIONS: None. FINDINGS: LOWER CHEST: No significant findings. No nodules or infiltrates. LIVER: Normal size. No masses. No dilated ducts. SPLEEN: Normal size. No focal lesions. PANCREAS: No masses. No significant calcifications. No adjacent inflammation or peripancreatic fluid collections. Pancreatic duct not dilated. GALLBLADDER: No identified stones by CT criteria. No inflammatory changes to suggest cholecystitis. ADRENAL GLANDS: No significant masses or asymmetry. RIGHT KIDNEY AND URETER: No solid masses. No significant calcifications. No hydronephrosis or hyd roureter. LEFT KIDNEY AND URETER: Stable subcentimeter cortical cyst in the lower pole. No solid masses. No significant calcifications. No hydronephrosis or hydroureter. AORTA AND VESSELS: No aneurysm. No dissection. Renal arteries, SMA, celiac without stenosis. RETROPERITONEUM: No retroperitoneal adenopathy, hemorrhage or masses. BOWEL AND PERITONEAL CAVITY: Scattered diverticuli in the descending and sigmoid colon. No masses or inflammatory changes. No free fluid or peritoneal masses. APPENDIX: Normal. PELVIS: Stable fatty lesion in the right adnexa, measuring 1.6 x 2.2 cm. No free fluid. Normal bladd er. ABDOMINAL WALL: No masses. No hernias. BONES: No significant or acute findings. OTHER: No other significant finding. IMPRESSION: 1. COLONIC DIVERTICULOSIS. NO CT FINDINGS OF DIVERTICULITIS. 2. STABLE FATTY LESION IN THE RIGHT ADNEXA, CONSISTENT WITH AN OVARIAN DERMOID. 3. STABLE SMALL CORTICAL CYST IN THE LEFT KIDNEY. 4. NO OTHER SIGNIFICANT OR ACUTE FINDING IN THE ABDOMEN OR PELVIS ON CT SCAN WITH IV CONTRAST. TECHNICAL DOCUMENTATION: JOB ID: [id number] Quality ID # [id number]: Final reports with documentation of one or more dose reduction techniques (e.g., Au tomated exposure control, adjustment of the mA and/or kV according to patient size, use of iterative reconstruction technique) 2010 [employer]- All Rights Reserved Reading location - IP/workstation name: [email or web address]
[2018-10-20 17:34] VITALS: BP 177/104
--- NOTE | 2018-10-20 17:38 | PDOC CONSULTATION ---
Consultation Consult Date: 10/20/18 Consult reason:: RLQ abdominal pain History of Present Illness Admission Date/PCP: ADALBERTO PATEL MD History of Present Illness: MADISON ALVA is a 53 year old female who presents to the ER with a vague complaint of RLQ abdominal pain which started this AM @ 4:20 AM. The paib=n was so stroing to wake her up; subsequently, the pain was persistent, localized, not associated with other symptoms such as fever, chills, or N/V. A complete w/u has been done by the ED physician and it is negative. During the interview, the patient admits to other painful parts of her body, is frequently tearful, and admits to a past hx of heavy tobacco abuse and heavy drinking x 20 years. Now, she reports to have been sober for several years.. Past Medical History Cardiac Medical History: Reports: Hyperlipidema, Hypertension Denies: Myocardial Infarction Pulmonary Medical History: Reports: Bronchitis Denies: Asthma, Chronic Obstructive Pulmonary Disease (COPD), Pneumonia Neurological Medical History: Denies: Seizures Endocrine Medical History: Comment Only: Diabetes Mellitus Type 2 - pre-diabetic, monitors sugars GI Medical History: Reports: Diverticulitis, Gastroesophageal Reflux Disease Musculoskeltal Medical History: Reports: Arthritis Psychiatric Medical History: Reports: Bipolar Disorder, Depression - anxiety, ptsd, Post Traumatic Stress Disorder Hematology: Reports: Anemia - with Past Surgical History Past Surgical History: Reports: Tubal Ligation, Other - Right breast cyst excision Denies: Hysterectomy Social History Smoking Status: Current Every Day Smoker Frequency of Alcohol Use: None Hx Recreational Drug Use: No Drugs: None Hx Prescription Drug Abuse: No Family History Family History: Reviewed & Not Pertinent, CAD - mother Parental Family History Reviewed: No Children Family History Reviewed: No Sibling(s) Family History Reviewed.: No Medication/Allergy Home Medications: Citalopram Hydrobromide [Celexa 10 mg Tablet] 10 mg PO DAILY 12/01/17 Lisinopril [Zestril] 10 mg PO DAILY #30 12/01/17 Metoprolol Tartrate [Lopressor 25 mg Tablet] 25 mg PO BID #60 tab 12/01/17 [place]-3 Fatty Acids/Fish Oil [[place] 3 Fish Oil Softgel] 1 each PO BID 30 Days #60 liana. 12/01/17 Pravastatin Sodium [Pravachol] 40 mg PO QHS 12/01/17 Clindamycin HCl 300 mg PO QID #40 capsule 01/05/18 Nystatin/Dexameth/Diphen [Magic Mouthwash] 5 ml PO QID #120 ml 01/05/18 Nystatin/Dexameth/Diphen [Magic Mouthwash ([facility] Formula) Susp] 5 ml PO QID #120 ml 01/06/18 Pregabalin [Lyrica 50 Mg Capsule] 50 mg PO BID #30 capsule 06/22/18 Allergies/Adverse Reactions: meloxicam [Meloxicam] Allergy (Verified 10/20/18 09:49) Penicillins Allergy (Verified 10/20/18 09:49) tetracycline [Tetracycline] Allergy (Verified 10/20/18 09:49) Physical Exam Vital Signs: Temp Pulse Resp BP Pulse Ox 98.0 F 72 13 123/82 96 10/20/18 10:11 10/20/18 10:11 10/20/18 15:00 10/20/18 15:00 10/20/18 15:00 Intake & Output 10/19/18 10/20/18 10/21/18 06:59 06:59 06:59 Weight 97.069 kg General appearance: PRESENT: no acute distress, other - tearful and alternates crying with laughing Head exam: PRESENT: atraumatic Eye exam: PRESENT: EOMI Mouth exam: PRESENT: moist, neck supple Neck exam: PRESENT: full ROM Respiratory exam: PRESENT: clear to auscultation bridgett Cardiovascular exam: PRESENT: RRR Vascular exam: PRESENT: normal capillary refill GI/Abdominal exam: PRESENT: normal bowel sounds, soft, other - no tenderness identified in any quadrnat; no pinpoint RLQ pain, no bulge identified imn the right groin after coughing Rectal exam: PRESENT: deferred Extremities exam: PRESENT: full ROM Musculoskeletal exam: PRESENT: full ROM, normal inspection Neurological exam: PRESENT: alert, awake, oriented to person, oriented to place, oriented to situation, other - normal motor and sensory functions Psychiatric exam: PRESENT: depressed - crying alternated with laughing Results Laboratory Results: 10/20/18 10:50 10/20/18 12:20 10/20/18 10/20/18 10/20/18 10:50 10:50 10:50 WBC 10.5 RBC 4.86 Hgb 15.1 Hct 43.3 MCV 89 MCH 31.0 MCHC 34.8 RDW 13.2 Plt Count 311 Seg Neutrophils % 56.0 Lymphocytes % 33.5 Monocytes % 7.0 Eosinophils % 2.7 Basophils % 0.8 Absolute Neutrophils 5.9 Absolute Lymphocytes 3.5 Absolute Monocytes 0.7 Absolute Eosinophils 0.3 Absolute Basophils 0.1 Sodium Cancelled Potassium Cancelled Chloride Cancelled Carbon Dioxide Cancelled Anion Gap Cancelled BUN Cancelled Creatinine Cancelled Est GFR ( Amer) Cancelled Est GFR (Non-Af Amer) Cancelled Glucose Cancelled Calcium Cancelled Total Bilirubin Cancelled AST Cancelled ALT Cancelled Alkaline Phosphatase Cancelled Total Protein Cancelled Albumin Cancelled Urine Color YELLOW Urine Appearance SLIGHTLY-CLOUDY Urine pH 5.0 Ur Specific [place] 1.021 Urine Protein NEGATIVE Urine Glucose (UA) NEGATIVE Urine Ketones NEGATIVE Urine Blood NEGATIVE Urine Nitrite NEGATIVE Ur Leukocyte Esterase NEGATIVE Urine WBC (Auto) 2 Urine RBC (Auto) 1 10/20/18 12:20 WBC RBC Hgb Hct MCV MCH MCHC RDW Plt Count Seg Neutrophils % Lymphocytes % Monocytes % Eosinophils % Basophils % Absolute Neutrophils Absolute Lymphocytes Absolute Monocytes Absolute Eosinophils Absolute Basophils Sodium 139.3 Potassium 4.5 Chloride 106 Carbon Dioxide 28 Anion Gap 5 BUN 15 Creatinine 0.66 Est GFR ( Amer) > 60 Est GFR (Non-Af Amer) > 60 Glucose 104 Calcium 9.9 Total Bilirubin 0.4 AST 23 ALT 31 Alkaline Phosphatase 60 Total Protein 6.9 Albumin 4.1 Urine Color Urine Appearance Urine pH Ur Specific [place] Urine Protein Urine Glucose (UA) Urine Ketones Urine Blood Urine Nitrite Ur Leukocyte Esterase Urine WBC (Auto) Urine RBC (Auto) 10/20/18 10/20/18 10:50 12:20 Troponin I Cancelled < 0.012 Impressions: Abdomen/Pelvis CT 10/20/18 13:43 IMPRESSION: 1. COLONIC DIVERTICULOSIS. NO CT FINDINGS OF DIVERTICULITIS. 2. STABLE FATTY LESION IN THE RIGHT ADNEXA, CONSISTENT WITH AN OVARIAN DERMOID. 3. STABLE SMALL CORTICAL CYST IN THE LEFT KIDNEY. 4. NO OTHER SIGNIFICANT OR ACUTE FINDING IN THE ABDOMEN OR PELVIS ON CT SCAN WITH IV CONTRAST. Assessment & Plan - Diagnosis (1) Abdominal pain Qualifiers: Abdominal location: unspecified location Qualified Code(s): R10.9 - Unspecified abdominal pain Is this a current diagnosis for this admission?: Yes - Plan Summary Plan Summary: A/ patient with unspecific abdominal pain in terms of symptoms, location, and type Frequent change of mood during interview Physical exam unremarkable, no obvious cause of pain identified Blood work WNL CT scan A/P negative for acute findings P/ No acute genral Surgery issues identified No further recommendatios by my viewpoint. I would discharge the patient from the ED with no narcotics, Tylenol & Aleve on ly. F/u with her PCP.
== END 2018-10-20 17:38 | disposition home or self-care (01) ==
LOC: ER 09:48
DX: R10.30 Lower abdominal pain, unspecified (principal); R07.9 Chest pain, unspecified; R10.9 Unspecified abdominal pain; R10.31 Right lower quadrant pain; R73.03 Prediabetes; F17.200 Nicotine dependence, unspecified, uncomplicated; I10 Essential (primary) hypertension
CPT/HCPCS: 93005; 99284; 96374; 36415; 85025; 80053; 81001; 84484; 74177; 93010; J3010

== ENCOUNTER → 2019-05-12 | Outpatient (CLI) | payer BC ==
--- NOTE | 2019-05-12 13:47 | WOMENS IMAGING REPORT ---
EXAM DESCRIPTION: U/S PELVIS NON-OB COMPLETED DATE/TIME: 05/12/2019 1:33 pm REASON FOR STUDY: R10.2 PELVIC AND PERINEAL PAIN R10.2 PELVIC AND PERINEAL PAIN COMPARISON: CT abdomen and pelvis 10/20/2018 Pelvic ultrasound 10/16/2013 TECHNIQUE: Dynamic and static grayscale images acquired of the pelvis via transabdominal approach an d recorded on PACS. Additional selected color Doppler and spectral images recorded. LIMITATIONS: Large patient, ovaries not well-visualized FINDINGS: UTERUS: Contour normal. No mass. Uterus is 8 x 4 x 4 cm in size ENDOMETRIAL STRIPE: No focal or generalized thickening. No masses. 5 mm in thickness. CERVIX: No nabothian cysts. RIGHT OVARY AND DOPPLER: Limited visualization of the right adnexa due to bowel gas. 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 This correlates with CT exam 10/20/2018. LEFT OVARY AND DOPPLER: Not visualized due to bowel gas FREE FLUID: None noted. OTHER: No other significant finding. IMPRESSION: No free pelvic fluid. 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 Normal size uterus. Left ovary not visualized TECHNICAL DOCUMENTATION: JOB ID: [id number] [email or web address]- All Rights Reserved Rev-12/03 Reading location - IP/workstation name: [email or web address]
== END ==
LOC: WI 12:35
PROVIDERS: ATTEND Midwife
DX: D27.0 Benign neoplasm of right ovary (principal); R10.2 Pelvic and perineal pain
CPT/HCPCS: 76856

== ENCOUNTER → 2019-05-16 | Outpatient (CLI) | payer BC | LOC: WI 14:54 | PROVIDERS: ATTEND Midwife | DX: Z12.31 Encounter for screening mammogram for malignant neoplasm of breast (principal); Z53.8 Procedure and treatment not carried out for other reasons ==

== ENCOUNTER → 2019-05-18 | Outpatient (CLI) | payer BC ==
--- NOTE | 2019-05-18 10:01 | WOMENS IMAGING REPORT ---
EXAM DESCRIPTION: BILAT DIAGNOSTIC MAMMO W/CAD; U/S BREAST UNILAT LIMITED COMPLETED DATE/TIME: 05/18/2019 9:01 am; 05/18/2019 9:32 am REASON FOR STUDY: N64.52 NIPPLE DISCHARGE; RT BREAST LUMP; LEFT BREAST NIPPLE RETRACTION N64.52 NIP PLE DISCHARGE COMPARISON: 2012- 2014 EXAM PARAMETERS: Standard craniocaudal and mediolateral oblique views of each breast recorded using digital acquisition. True lateral views both breasts, cone compression views right breast. Read with the assistance of CAD: .[facility] [facility] [employer] Version 9.2 LIMITATIONS: None. FINDINGS: RIGHT BREAST MASSES: No suspicious masses. CALCIFICATIONS: No new or suspicious calcifications. ARCHITECTURAL DISTORTION: None. DEVELOPING DENSITY: None. ASYMMETRY: None noted. OTHER: No other significant findings. LEFT BREAST MASSES: No suspicious masses. CALCIFICATIONS: No new or suspicious calcifications. ARCHITECTURAL DISTORTION: None. DEVELOPING DENSITY: None. ASYMMETRY: None noted. OTHER: No other significant finding. Ultrasound of both breasts was performed. On the right, there are several cysts, the largest 3 cm in the 2 o'clock position. Left breast ultrasound was normal. IMPRESSION: Benign cysts right breast. BREAST DENSITY: c. The breasts are heterogeneously dense, which may obscure small masses. BIRAD: ASSESSMENT: 2 Benign findings. RECOMMENDATION: RECOMMENDED FOLLOW UP: Birads 1 or 2: No breast imaging finding to explain the patie nt's presenting complaint. Further intervention should be based on the degree of clinical suspicion. SPECIFIC INTERVENTION/IMAGING/CONSULTATION RECOMMENDED:No additional intervention/ imaging/consultati on needed at this time. COMMUNICATION:The imaging findings were not discussed with the patient. Her referring provider has be en notified of the findings. COMMENT: The patient has been notified of the results by letter per SA requirements. Additional no tification policies are in place for contacting patient with suspicious or incomplete findings. Quality ID #[id number]: The [employer] recommends an annual screening mammogram for women aged 40 years or over. This facility utilizes a reminder system to ensure that all patients receive reminder letters, and/or direct phone calls for appointments. This includes reminders for routine scr eening mammograms, diagnostic mammograms, or other Breast Imaging Interventions when appropriate. Th is patient will be placed in the appropriate reminder system. TECHNICAL DOCUMENTATION: FINDING NUMBER: (1) ASSESSMENT: (1) JOB ID: [id number] [facility] [employer]- All Rights Reserved Reading location - IP/workstation name: [email or web address]
--- NOTE | 2019-05-18 10:01 | WOMENS IMAGING REPORT ---
EXAM DESCRIPTION: BILAT DIAGNOSTIC MAMMO W/CAD; U/S BREAST UNILAT LIMITED COMPLETED DATE/TIME: 05/18/2019 9:01 am; 05/18/2019 9:32 am REASON FOR STUDY: N64.52 NIPPLE DISCHARGE; RT BREAST LUMP; LEFT BREAST NIPPLE RETRACTION N64.52 NIP PLE DISCHARGE COMPARISON: 2012- 2014 EXAM PARAMETERS: Standard craniocaudal and mediolateral oblique views of each breast recorded using digital acquisition. True lateral views both breasts, cone compression views right breast. Read with the assistance of CAD: .[facility] - [employer] Version 9.2 LIMITATIONS: None. FINDINGS: RIGHT BREAST MASSES: No suspicious masses. CALCIFICATIONS: No new or suspicious calcifications. ARCHITECTURAL DISTORTION: None. DEVELOPING DENSITY: None. ASYMMETRY: None noted. OTHER: No other significant findings. LEFT BREAST MASSES: No suspicious masses. CALCIFICATIONS: No new or suspicious calcifications. ARCHITECTURAL DISTORTION: None. DEVELOPING DENSITY: None. ASYMMETRY: None noted. OTHER: No other significant finding. Ultrasound of both breasts was performed. On the right, there are several cysts, the largest 3 cm in the 2 o'clock position. Left breast ultrasound was normal. IMPRESSION: Benign cysts right breast. BREAST DENSITY: c. The breasts are heterogeneously dense, which may obscure small masses. BIRAD: ASSESSMENT: 2 Benign findings. RECOMMENDATION: RECOMMENDED FOLLOW UP: Birads 1 or 2: No breast imaging finding to explain the patie nt's presenting complaint. Further intervention should be based on the degree of clinical suspicion. SPECIFIC INTERVENTION/IMAGING/CONSULTATION RECOMMENDED:No additional intervention/ imaging/consultati on needed at this time. COMMUNICATION:The imaging findings were not discussed with the patient. Her referring provider has be en notified of the findings. COMMENT: The patient has been notified of the results by letter per SA requirements. Additional no tification policies are in place for contacting patient with suspicious or incomplete findings. Quality ID #[id number]: The [employer] recommends an annual screening mammogram for women aged 40 years or over. This facility utilizes a reminder system to ensure that all patients receive reminder letters, and/or direct phone calls for appointments. This includes reminders for routine scr eening mammograms, diagnostic mammograms, or other Breast Imaging Interventions when appropriate. Th is patient will be placed in the appropriate reminder system. TECHNICAL DOCUMENTATION: FINDING NUMBER: (1) ASSESSMENT: (1) JOB ID: [id number] [facility] [employer]- All Rights Reserved Reading location - IP/workstation name: [email or web address]
--- NOTE | 2019-05-18 10:01 | WOMENS IMAGING REPORT ---
EXAM DESCRIPTION: BILAT DIAGNOSTIC MAMMO W/CAD; U/S BREAST UNILAT LIMITED COMPLETED DATE/TIME: 05/18/2019 9:01 am; 05/18/2019 9:32 am REASON FOR STUDY: N64.52 NIPPLE DISCHARGE; RT BREAST LUMP; LEFT BREAST NIPPLE RETRACTION N64.52 NIP PLE DISCHARGE COMPARISON: 2012- 2014 EXAM PARAMETERS: Standard craniocaudal and mediolateral oblique views of each breast recorded using digital acquisition. True lateral views both breasts, cone compression views right breast. Read with the assistance of CAD: .[facility] - [employer] Vibrating Screed Operator Version 9.2 LIMITATIONS: None. FINDINGS: RIGHT BREAST MASSES: No suspicious masses. CALCIFICATIONS: No new or suspicious calcifications. ARCHITECTURAL DISTORTION: None. DEVELOPING DENSITY: None. ASYMMETRY: None noted. OTHER: No other significant findings. LEFT BREAST MASSES: No suspicious masses. CALCIFICATIONS: No new or suspicious calcifications. ARCHITECTURAL DISTORTION: None. DEVELOPING DENSITY: None. ASYMMETRY: None noted. OTHER: No other significant finding. Ultrasound of both breasts was performed. On the right, there are several cysts, the largest 3 cm in the 2 o'clock position. Left breast ultrasound was normal. IMPRESSION: Benign cysts right breast. BREAST DENSITY: c. The breasts are heterogeneously dense, which may obscure small masses. BIRAD: ASSESSMENT: 2 Benign findings. RECOMMENDATION: RECOMMENDED FOLLOW UP: Birads 1 or 2: No breast imaging finding to explain the patie nt's presenting complaint. Further intervention should be based on the degree of clinical suspicion. SPECIFIC INTERVENTION/IMAGING/CONSULTATION RECOMMENDED:No additional intervention/ imaging/consultati on needed at this time. COMMUNICATION:The imaging findings were not discussed with the patient. Her referring provider has be en notified of the findings. COMMENT: The patient has been notified of the results by letter per [place] requirements. Additional no tification policies are in place for contacting patient with suspicious or incomplete findings. Quality ID #[id number]: The [employer] recommends an annual screening mammogram for women aged 40 years or over. This facility utilizes a reminder system to ensure that all patients receive reminder letters, and/or direct phone calls for appointments. This includes reminders for routine scr eening mammograms, diagnostic mammograms, or other Breast Imaging Interventions when appropriate. Th is patient will be placed in the appropriate reminder system. TECHNICAL DOCUMENTATION: FINDING NUMBER: (1) ASSESSMENT: (1) JOB ID: [id number] [facility] [employer]- All Rights Reserved Reading location - IP/workstation name: [email or web address]
== END ==
LOC: WI 08:30
PROVIDERS: ATTEND Obstetrics & Gynecology Gynecology
DX: N60.01 Solitary cyst of right breast (principal); N64.4 Mastodynia; N64.52 Nipple discharge
CPT/HCPCS: 76642; 77066

== ENCOUNTER 2019-05-19 16:21 | Emergency (ER) | payer BC ==
--- NOTE | 2019-05-19 17:07 | ER Document Report ---
ED Medical Screen (RME) - General Chief Complaint: Chest Pain Stated Complaint: CHEST PAIN/HIGH BLOOD PRESSURE Time Seen by Provider: 05/19/19 17:02 Primary Care Provider: CONOR POOL MD [Primary Care Provider] - Follow up as needed Mode of Arrival: Ambulatory Information source: Patient Notes: 53-year-old female presented to ED for complaint of chest pain through the middle of the chest radiating to the left and right down the left arm through to the back left and right. She states is been hurting since yesterday in the chest and for 3 days in the back. She states it was just kind of mild yesterday but is getting worse. She states she does have anxiety but this is different than that pain. She states she is also having pain in her upper chest up to her throat. She does have a history of high blood pressure cholesterol. She states her blood pressure has been high and she takes metoprolol and took an extra half a pill today. Blood pressure was 181/119 in the triage area we will recheck it right now. Smokes a third a pack a day denies alcohol or drugs. I have greeted and performed a rapid initial assessment of this patient. A comprehensive ED assessment and evaluation of the patient, analysis of test results and completion of medical decision making process will be conducted by an additional ED providers. TRAVEL OUTSIDE OF THE [place] IN LAST 30 DAYS: No - Related Data Allergies/Adverse Reactions: meloxicam [Meloxicam] Allergy (Verified 10/20/18 09:49) Penicillins Allergy (Verified 10/20/18 09:49) tetracycline [Tetracycline] Allergy (Verified 10/20/18 09:49) Past Medical History - Past Medical History Cardiac Medical History: Reports: Hx Hypercholesterolemia, Hx Hypertension Denies: Hx Heart Attack Pulmonary Medical History: Reports: Hx Bronchitis Denies: Hx Asthma, Hx COPD, Hx Pneumonia Neurological Medical History: Denies: Hx Seizures Endocrine Medical History: Comment Only: Hx Diabetes Mellitus Type 2 - pre- diabetic, monitors sugars Renal/ Medical History: Reports: Hx Ovarian Cysts - FIBROIDS, Hx Renal Insufficiency. Denies: Hx Peritoneal Dialysis GI Medical History: Reports: Hx Diverticulitis, Hx Gastroesophageal Reflux Disease Musculoskeltal Medical History: Reports Hx Arthritis Psychiatric Medical History: Reports: Hx Anxiety, Hx Bipolar Disorder, Hx Depression - anxiety, ptsd, Hx Post Traumatic Stress Disorder Past Surgical History: Reports: Hx Tubal Ligation, Other - Right breast cyst excision. Denies: Hx Hysterectomy - Immunizations Hx Diphtheria, Pertussis, Tetanus Vaccination: Yes - 2012 Physical Exam - Vital signs Vitals: Temp Pulse Resp BP Pulse Ox 98.1 F 80 16 181/119 H 98 05/19/19 16:47 05/19/19 16:47 05/19/19 16:47 05/19/19 16:47 05/19/19 16:47 Course - Vital Signs Vital signs: Temp Pulse Resp BP Pulse Ox 98.1 F 80 16 181/119 H 98 05/19/19 16:47 05/19/19 16:47 05/19/19 16:47 05/19/19 16:47 05/19/19 16:47 Doctor's Discharge - Discharge Referrals: CONOR POOL MD [Primary Care Provider] - Follow up as needed
[2019-05-19 17:40] LABS: ABSOLUTE BASOPHILS # (AUTO) 0.1 10^3/uL (0.0-0.2); ABSOLUTE EOSINOPHILS # (AUTO) 0.2 10^3/uL (0.0-0.6); ABSOLUTE MONOCYTES (AUTO) 0.7 10^3/uL (0.1-1.4); ABSOLUTE NEUT (AUTO) 6.3 10^3/uL (1.7-8.2); BASOPHILS % (AUTO) 0.5 % (0-2); EOSINOPHILS % (AUTO) 1.9 % (0-6); HEMATOCRIT 43.8 % (36.0-47.0); LYMPHOCYTES % (AUTO) 40.7 % (13-45); MEAN CORPUSCULAR HEMOGLOBIN 30.8 pg (27.0-33.4); MEAN CORPUSCULAR HGB CONC 34.2 g/dL (32.0-36.0); MEAN CORPUSCULAR VOLUME 90 fl (80-97); MONOCYTES % (AUTO) 5.7 % (3-13); PLATELET COUNT 275 10^3/uL (150-450); RED BLOOD COUNT 4.87 10^6/uL (3.72-5.28); RED CELL DISTRIBUTION WIDTH 13.3 % (11.5-14.0); SEGMENTED NEUTROPHILS % (AUTO) 51.2 % (42-78); TOTAL CELLS COUNTED % (AUTO) 100 %; WHITE BLOOD COUNT 12.4 10^3/uL (4.0-10.5)
[2019-05-19 17:53] LABS: APPEARANCE,URINE CLEAR; BILIRUBIN,URINE NEGATIVE (NEGATIVE); COLOR,URINE YELLOW; GLUCOSE, URINE NEGATIVE (NEGATIVE); KETONES,URINE NEGATIVE (NEGATIVE); PROTEIN,URINE NEGATIVE (NEGATIVE); URINE SPECIFIC GRAVITY 1.011; UROBILINOGEN,URINE NEGATIVE mg/dL (<2.0)
[2019-05-19 18:05] LABS: ALBUMIN 4.8 g/dL (3.5-5.0); ALKALINE PHOSPHATASE 57 U/L (38-126); ANION GAP 9 (5-19); ASPARTATE AMINO TRANSFERASE 25 U/L (14-36); BILIRUBIN,DIRECT 0.2 mg/dL (0.0-0.4); BILIRUBIN,TOTAL 0.3 mg/dL (0.2-1.3); BLOOD UREA NITROGEN 17 mg/dL (7-20); CARBON DIOXIDE 25 mmol/L (22-30); CHLORIDE 106 mmol/L (98-107); GLUCOSE 87 mg/dL (75-110); POTASSIUM 4.3 mmol/L (3.6-5.0); TOTAL PROTEIN 7.7 g/dL (6.3-8.2)
--- NOTE | 2019-05-19 18:10 | RADIOLOGY REPORT (SQ) ---
EXAM DESCRIPTION: CHEST 2 VIEWS COMPLETED DATE/TIME: 05/19/2019 5:43 pm REASON FOR STUDY: Chest pain COMPARISON: 06/21/2018 TECHNIQUE: Frontal and lateral radiographic views of the chest acquired. NUMBER OF VIEWS: Two view. LIMITATIONS: None. FINDINGS: LUNGS AND PLEURA: No pneumothorax. No consolidation or pleural effusion. MEDIASTINUM AND HILAR STRUCTURES: Stable. HEART AND VASCULAR STRUCTURES: Stable. BONES: No acute findings. HARDWARE: None in the chest. OTHER: No other significant finding. IMPRESSION: NO ACUTE FINDINGS. TECHNICAL DOCUMENTATION: JOB ID: [id number] [place]-72 2010 [employer] All Rights Reserved Reading location - IP/workstation name: [email or web address]
[2019-05-19] MEDS ORDERED: ACETAMINOPHEN 325 MG TABLET PO ONE (18:52)
[2019-05-19] MEDS ORDERED: ONDANSETRON HCL INJ/PF 4 MG/2 ML SDV IV ONE (18:52)
[2019-05-19] MEDS ORDERED: KETOROLAC TROMETHAMINE INJ/PF 30 MG/1 ML SDV IV ONE (18:52)
[2019-05-19 19:07] LABS: CREATINE KINASE 83 U/L (30-135)
[2019-05-19 19:20] LABS: CREATINE KINASE MB 1.54 ng/mL (<4.55)
[2019-05-19 19:22] LABS: TROPONIN I < 0.012 ng/mL
--- NOTE | 2019-05-19 21:19 | RADIOLOGY REPORT (SQ) ---
EXAM DESCRIPTION: CT CHEST ANGIOGRAPHY WITHOUT THEN WITH IV CONTRAST COMPLETED DATE/TME: 05/19/2019 20:23 CLINICAL HISTORY: 53 years, Female, chest pain; eval PE PROCEDURE: CLINICAL HISTORY: 53 years Female chest pain; eval PE COMPARISON: None. TECHNIQUE: Contiguous axial images were obtained through the chest during the infusion of IV contrast. Reformatted images obtained. MIP reformatted images obtained. This exam was performed according to our department optimization program which includes automated exposure control, adjustment of the mA and/or kv according to patient size and/or use of iterative reconstruction technique. FINDINGS: There is irregularity and enlargement of the right adrenal gland, with soft tissue attenuation. Transverse dimension is approximately 12 mm. There are calcifications in the perihilar regions suggesting old granulomatous disease. Mediastinal lymph nodes are also calcified, also suggesting old granulomatous disease. Small amount of fluid is in the pericardial recesses. There are mildly enlarged mediastinal lymph nodes. There is a small hiatal hernia. The lungs are clear. No pneumothorax is seen. Heart size is normal. No pleural effusions. . No PE is seen. No evidence of aortic aneurysm. No other significant abnormality. IMPRESSION: No evidence of pulmonary embolus. Probable old granulomatous disease. Nonspecific right adrenal gland enlargement and irregularity.
[2019-05-19] MEDS ORDERED: MORPHINE SULFATE 10 MG/ML INJ IV ONE (21:32)
--- NOTE | 2019-05-19 22:17 | ER Document Report ---
ED Cardiac - General Chief Complaint: Chest Pain Stated Complaint: CHEST PAIN/HIGH BLOOD PRESSURE Time Seen by Provider: 05/19/19 17:02 Primary Care Provider: CONOR POOL MD [Primary Care Provider] - Follow up in 3-5 days Mode of Arrival: Ambulatory Notes: Patient is a 53-year-old female who presents to the emergency department with a chief complaint of chest pain and back pain. Yesterday she felt pain in her upper back and every time she took a deep breath she would have pain. Patient also comments that her blood pressure was higher today. She ended up taking an extra half dose of her metoprolol at home. She also took a dose of her anxiety medication. She has not had any pain medicine today. She took Tylenol yesterday. Patient is an everyday smoker. Past medical history includes hypertension and anxiety. TRAVEL OUTSIDE OF THE [place] IN LAST 30 DAYS: No - Related Data Allergies/Adverse Reactions: meloxicam [Meloxicam] Allergy (Verified 05/19/19 17:03) Penicillins Allergy (Verified 05/19/19 17:03) tetracycline [Tetracycline] Allergy (Verified 05/19/19 17:03) Home Medications: Metoprolol ER 50 mg q d Past Medical History - General Information source: Patient - Social History Smoking Status: Current Every Day Smoker Chew tobacco use (# tins/day): No Drug Abuse: None Family History: Reviewed & Not Pertinent, CAD Patient has suicidal ideation: No Patient has homicidal ideation: No - Past Medical History Cardiac Medical History: Reports: Hx Hypercholesterolemia, Hx Hypertension Denies: Hx Heart Attack Pulmonary Medical History: Reports: Hx Bronchitis Denies: Hx Asthma, Hx COPD, Hx Pneumonia Neurological Medical History: Denies: Hx Seizures Endocrine Medical History: Comment Only: Hx Diabetes Mellitus Type 2 - pre- diabetic, monitors sugars Renal/ Medical History: Reports: Hx Ovarian Cysts - FIBROIDS, Hx Renal Insufficiency. Denies: Hx Peritoneal Dialysis GI Medical History: Reports: Hx Diverticulitis, Hx Gastroesophageal Reflux Disease Musculoskeletal Medical History: Reports Hx Arthritis Psychiatric Medical History: Reports: Hx Anxiety, Hx Bipolar Disorder, Hx Depression - anxiety, ptsd, Hx Post Traumatic Stress Disorder Past Surgical History: Reports: Hx Tubal Ligation, Other - Right breast cyst excision. Denies: Hx Hysterectomy - Immunizations Hx Diphtheria, Pertussis, Tetanus Vaccination: Yes - 2012 Review of Systems - Review of Systems Notes: REVIEW OF SYSTEMS: CONSTITUTIONAL : Denies recent illness. Denies recent unintentional weight loss. Denies fever, chills, or sweats. EENT: Denies eye, ear, throat, or mouth pain, discharge, or symptoms. Denies nasal or sinus congestion. CARDIOVASCULAR: See HPI. RESPIRATORY: Denies shortness of breath, cough, congestion, difficulty breathing, or wheezing. GASTROINTESTINAL: Denies nausea, vomiting, and diarrhea. Denies abdominal pain. Denies constipation. GENITOURINARY: Denies difficulty urinating, burning, blood in urine, urgency or frequency. MUSCULOSKELETAL: See HPI. Denies joint pain or swelling. SKIN: Denies rash, itchiness, or lesions HEMATOLOGIC : Denies easy bruising or bleeding. LYMPHATIC: Denies swollen, painful, enlarged glands. NEUROLOGICAL: Denies no numbness or tingling denies weakness. Denies headache. Denies altered mental status. Denies alteration in speech. PSYCHIATRIC: Denies stress, anxiety, alteration in sleep patterns, or depression. All other systems reviewed and negative. Physical Exam - Vital signs Vitals: Temp Pulse Resp BP Pulse Ox 98.1 F 80 16 181/119 H 98 05/19/19 16:47 05/19/19 16:47 05/19/19 16:47 05/19/19 16:47 05/19/19 16:47 - Notes Notes: PHYSICAL EXAMINATION: GENERAL: Appears well, healthy, well-nourished, no acute distress. HEAD: Normocephalic, atraumatic. EYES: PERRL, conjunctiva normal, all extraocular movements intact, sclera nonicteric ENT: Moist mucous membranes. NECK: Supple, no noticeable swelling, redness, rash. Normal range of motion. LUNGS: Equal breath sounds bilaterally and clear to auscultation. No wheezes rales or rhonchi. CARDIOVASCULAR: S1-S2, bradycardia, regular rhythm. Radial pulses 2+, normal. ABDOMEN: Normoactive bowel sounds. Soft, nontender, no guarding, no rebound tenderness, and no masses palpated. EXTREMITIES: Normal strength and range of motion, no pitting or edema. No cyanosis. NEUROLOGICAL: Moves all extremities upon command. Strength 5/5 in all extremities. PSYCH: Normal mood, normal affect. SKIN: Warm, dry. No rash, lesions, ulcerations noted. Normal skin turgor. MSK: Tenderness upon palpation of the paraspinous muscles. No CVA tenderness noted. Course - Re-evaluation Re-evalutation: 05/19/19 Hematology is 12,400. Chemistries are unremarkable. BNP was only mildly elevated, but not high enough to where she needs to be on medications. Troponin and CK are negative. Urinalysis shows a small amount of blood in her urine. I suspect the patient's pain is due to a possible pinched nerve in her back. I have advised the patient to follow-up with her primary care provider. She will be sent home with pain medication. CT of the abdomen pelvis CTA of the chest was negative. Follow-up precautions were given. Verbal discharge instructions were given to the patient. They verbalized understanding. They are stable for discharge. - Vital Signs Vital signs: Temp Pulse Resp BP Pulse Ox 98.1 F 80 15 156/92 H 95 05/19/19 16:47 05/19/19 16:47 05/19/19 22:32 05/19/19 22:32 05/19/19 22:32 - Laboratory Result Diagrams: 05/19/19 17:24 05/19/19 17:24 Laboratory results interpreted by me: 05/19/19 05/19/19 05/19/19 17:24 17:24 17:24 WBC 12.4 H Absolute Lymphs (auto) 5.0 H NT-Pro-B Natriuret Pep 249 H Urine Blood SMALL H Discharge - Discharge Clinical Impression: Chest pain Qualifiers: Chest pain type: unspecified Qualified Code(s): R07.9 - Chest pain, unspecified Back pain Qualifiers: Back pain location: thoracic back pain Chronicity: acute Back pain laterality: right Qualified Code(s): M54.6 - Pain in thoracic spine Condition: Stable Disposition: HOME, SELF-CARE Additional Instructions: You are seen today in the emergency department for chest pain and back pain. Your pain is most likely due to a pinched nerve in your back. Please take ibupr ofen 600 mg and acetaminophen 1000 mg every 6 hours for your pain. You are also being sent home with morphine, medication to help with breakthrough pain. You can take 1 tablet twice a day as needed. Please follow-up with your primary care provider. Prescriptions: Morphine Sulfate [Morphine Ir 15 Mg Tablet] 15 mg PO BIDP PRN #14 tablet PRN Reason: Referrals: CONOR POOL MD [Primary Care Provider] - Follow up in 3-5 days
[2019-05-19] MEDS ORDERED: MORPHINE SULFATE IR 15 MG TABLET PO ONE (22:19)
[2019-05-19 22:38] VITALS: BP 156/92
--- NOTE | 2019-05-21 21:37 | EKG REPORT ---
SEVERITY:- NORMAL ECG - SINUS RHYTHM : Confirmed by: Willie Vela MD 21-May-2019 21:36:37
== END 2019-05-19 22:42 | disposition home or self-care (01) ==
LOC: ER 16:21
DX: M54.6 Pain in thoracic spine (principal); R07.1 Chest pain on breathing; R00.1 Bradycardia, unspecified; R31.9 Hematuria, unspecified; I10 Essential (primary) hypertension; F17.200 Nicotine dependence, unspecified, uncomplicated; Z79.899 Other long term (current) drug therapy; Z88.8 Allergy status to other drugs, medicaments and biological substances; Z88.0 Allergy status to penicillin; Z88.1 Allergy status to other antibiotic agents
CPT/HCPCS: 93005; 36415; 82553; 82550; 83690; 85025; 80053; 81001; 84484; 83880; 71046; 71275; 93010; J1885; J2270; J2405; 96374; 96375; 99285